=== PATIENT | female | born 1970 | race Caucasian/White ===

== ENCOUNTER 2024-08-03 10:56 | Outpatient (AMB) | payer BC, SELFPAY ==
--- NOTE | 2024-08-03 10:58 | MHC.PC.OV ---
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 - see comments Intake Note: new patient to establish care Allergies No Known Allergies Allergy (Verified 08/03/24 11:15) Medication List - Last Reconciled 08/03/24 by ZULY Vee No Known Home Meds Tobacco use date assessed: 08/03/24 Dental Screening Dental Screen Date: 08/03/24 Did you have a dental visit in the last 12 months?: Yes Did you have a dental problem in the last 6 months where you did not have access to dental care?: No Was dental information given to patient?: Patient has dentist HPI HPI Comments History of Present Illness Details 54 y/o F with perimenopause, overactive bladder, obesity, alcohol use disorder s/p left knee surgery x 2 1988, 2010, breast reduction 2007, bladder sling Fhx:Mom with postmenopausal breast cancer dx 57, . 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 DEXA n/a PAP Oct [address], [address] Tdap today 08/03/24 Specialists: [facility] @ [facility] Here today as a new patient to establish care and for complete physical exam. She reports that she is overall very healthy. Coming from Dr Strickland in [place]. Whose practice has closed and records are not available. Optho- UTD, last exam 2 years ago. Wears cheaters Skin - no issues Sleep- falls asleep fine, wakes to use the bathroom and then her mind runs. Getting up 2-3 times per night to use the bathroom Drinks beer and wine each night . Denies any withdrawal sx. Plan Check screening labs today. Refer for her 1st colonoscopy and for dermatology skin cancer screening For her overactive bladder I recommend trialing Myrbetriq. 25 mg daily. If this is successful and prevent sure waking up in the middle of the night, advised to continue this treatment. We can increase the medication if necessary. If this does not work, advised to use melatonin extended release to help her insomnia Discussed alcohol reduction. Return to the office in 1 year for complete physical exam, sooner as needed. This note is constructed using voice recognition software. While every effort has been made to ensure accuracy in dry mill operator, still errors may have been included Sometimes, these errors may affect the content or meaning of the given sentence . [facility] Medical History (Updated 08/03/24 @ 14:33 by DAGMAR Vee) No pertinent past medical history Surgical History (Updated 08/03/24 @ 14:33 by ZULY Vee) Hx of bilateral breast reduction surgery H/O arthroscopic knee surgery Family History (Updated 08/03/24 @ 11:11 by Ector Hdz MA) Father Diabetes Mother Breast cancer Cervical cancer Social History (Updated 08/03/24 @ 11:04 by Ector Hdz MA) Household Members: Spouse Both parents involved: No Caregiver staying overnight: No Housing: House Are you a primary acute care surgeon to a significant other at home: No Do you presently have visiting nurse or other home services: No 75 years or older and lives alone: No Alcohol intake: current Alcohol intake frequency: 0-2 drinks per day Alcohol type: beer and wine Patient Tobacco Use Status: Never used Tobacco e-Cigarette/Vaping Use: Never Used Second Hand Smoke Exposure: No service: No Current occupational status: 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 1. Little interest or pleasure in doing things: not at all 2. Feeling down, depressed, or hopeless: not at all 3. Trouble falling or staying asleep, or sleeping too much: more than half the days 4. Feeling tired or having little energy: not at all 5. Poor appetite or overeating: not at all 6. Feeling bad about yourself - or that you are a failure or have let yourself or your family down: not at all 7. Trouble concentrating on things, such as reading the newspaper or watching television: not at all 8. Moving or speaking so slowly that other people could have noticed. Or the opposite - being so fidgety or restless that you have been moving around a lot more than usual: not at all 9. Thoughts that you would be better off or of hurting yourself in some way: not at all Total score: 2 Depression Screening Interpretation: Negative Depression Screening Done: Yes 50946 - PHQ-9 Billing: Yes Source: Developed by Drs. Carter Heaton, Maria Ines Rushing, Terrance Bran and colleagues, with an educational arnie from [employer]. Thrive Questionnaire Date Thrive assessed: 08/03/24 I am a: Patient What is your living situation today?: I have a steady place to live Within the past 12 months, did the food you bought not last and you didn't have the money to get more?: Never true Within the past 12 months, did you worry whether your food would run out before you got money to buy more?: Never true Do you have trouble paying for medicines?: No Do you have trouble getting transportation to medical appointments?: No Do you have trouble paying your heating and electricity bill?: No Do you have trouble taking care of your child, family member or friend?: No Do you have trouble with day-to-day activities such as bathing, preparing meals, shopping, managing finances, etc.?: No Are you currently unemployed and looking for a job?: No Are you interested in more education?: No Please select the resources that you would like help with: None THRIVE Score: 0 AUDIT C Alcohol Use Questionnaire (AUDIT-C) 1. How often do you have a drink containing alcohol?: Monthly or less 2. How many drinks containing alcohol do you have on a typical day when you are drinking?: 1 or 2 3. How often do you have six or more drinks on one occasion?: Never Total Score: 1 Score Reviewed/Action Taken: Yes HAYLEY-7 AMB Questionnaire HAYLEY-7 Date HAYLEY - 7 assessed: 08/03/24 Feeling nervous, anxious, or on edge: 0 = Not at all Not being able to stop or control worryin = Not at all Worrying too much about different things: 0 = Not at all Trouble relaxin = Not at all Being so restless that it is hard to sit still: 0 = Not at all Becoming easily annoyed or irritable: 0 = Not at all Feeling afraid as if something awful might happen: 0 = Not at all Total HAYLEY-7 score (0-4 normal; 5-9 mild; 10-14 moderate; 15-21 severe): 0 Source: Developed by Drs. Carter Heaton, Maria Ines Rushing, Terrance Bran and colleagues, with an educational arnie from [employer]. HAYLEY-7 Assessment Billing HAYLEY-7 Assessment Tool: HAYLEY-7 Assessment 23866 Review of Systems Const Details: Constitutional: Denies fever. Skin: Denies rash. Eye: Denies eye pain. ENMT: Denies sore throat and nasal congestion. Respiratory: Denies shortness of breath and cough. Gastrointestinal: Denies nausea, vomiting or abdominal pain. Cardiovascular: Denies chest pain and syncope. Genitourinary: Denies dysuria. Musculoskeletal: Denies back pain and extremity pain. Neurologic: Denies headaches, confusion, and weakness. Psychiatric: Denies suicidal thoughts and substance abuse. Allergy/ Immunologic: Denies impaired immunity. Physical exam (Primary Care) Vital Signs: Last Vital Signs Pulse 88 08/03/24 11:04 Resp 15 08/03/24 11:04 BP 118/76 08/03/24 11:04 Pulse Ox 97 08/03/24 11:04 Oxygen Delivery Method Room Air 08/03/24 11:04 BMI result Body Mass Index 32.0 BMI Assessment/Plan discussion: High BMI High, discussed plan: lifestyle Tobacco/Smoking Status: Tobacco use Status Tobacco use date assessed 08/03/24 08/03/24 11:07 Patient Tobacco Use Status Never used Tobacco 08/03/24 11:07 e-Cigarette/Vaping Use Never Used 08/03/24 11:07 PHQ-9: PHQ-9 Score PHQ-9: Total score 2 08/03/24 11:54 Depression Screening Interpretation: Negative Thrive Assessment: Date of Thrive Assessment Date Thrive assessed 08/03/24 08/03/24 11:11 Const Other: General: Well developed, well nourished, in no acute distress. Appears stated age. Head: Normocephalic, atraumatic. Eyes: Pupils are equal, round and reactive to light and accommodation. Conjunctivae are clear. Vision grossly normal. Ears: TMs clear on right, Cerumen impaction Left Nose: Patent, without discharge. Mouth: There are no ulcers or lesions noted. No inflammation, no post nasal drip, no plaques nor exudates. Neck: Supple, no adenopathy or thyromegaly. Lungs: Clear to auscultation bilaterally. No rales, rhonchi or wheeze noted. Good air flow in all nicholas. Heart: Regular rate and rhythm. No murmurs, click, rubs or gallops are noted. Abdomen: Bowel sounds present in all quadrants. The abdomen is soft, nontender, with no masses or organomegaly noted. No hernias are noted. Musculoskeletal: Joints are nontender, without swelling, redness, or effusions. Range of motion is observed to be normal. Pulses: Peripheral pulses are equal and palpable bilaterally. Extremities: No clubbing, cyanosis nor edema is noted. Neurologic: Gait and station normal. Cranial Nerves 2-12 intact. Motor strength grossly symmetrical and intact. No sensory loss. Balance normal. Skin: No rashes, ulcers, or lesions noted. Turgor is good. Skin color is good. Hair and nails are without abnormalities. Psych: Normal eye contact, affect and mood appropriate, and normal interactions. Patient is alert and appropriate to context. Immunizations Boostrix Tdap 2.5 Lf unit-8 mcg-5 Lf/0.5 mL intramuscular syringe Performing Provider: ZULY Vee Performing Location: [facility] Administered by: Shikha Kruse RN on 08/03/24 11:52 Dose Route Admin Location Dispensed Lot Number Expiration Date NDC Test Director 0.5 mL IM Right Deltoid 0.5 mL [id number] 08/03/24 29779-093-88 [employer] VIS Given Date VIS Provided VIS Publication Date 08/03/24 Single Vaccine 21 Eligibility Eligibility Date Funding Source Not [facility] Eligible 08/03/24 Private Assessment and Plan Assessment & Plan (1) Encounter for general adult medical examination without abnormal findings: Code(s): Z00.00 - Encounter for general adult medical examination without abnormal findings (2) Alcohol use disorder: Code(s): F10.90 - Alcohol use, unspecified, uncomplicated (3) Overactive bladder due to prolapse of female genital organ: Code(s): N32.81 - Overactive bladder; N81.9 - Female genital prolapse, unspecified (4) Obesity, Class I, BMI 30-34.9: Code(s): E66.9 - Obesity, unspecified (5) Screening for colon cancer: Code(s): Z12.11 - Encounter for screening for malignant neoplasm of colon (6) Skin cancer screening: Code(s): Z12.83 - Encounter for screening for malignant neoplasm of skin (7) H/O midurethral sling procedure: Code(s): Z98.890 - Other specified postprocedural states (8) Perimenopause: Code(s): N95.1 - Menopausal and female climacteric states (9) Left ear impacted cerumen: Code(s): H61.22 - Impacted cerumen, left ear Orders: Orders Comprehensive [place]. Panel Fast Today Z00.00 - Encounter for general adult medical examination without abnormal findings Hemoglobin A1c Today Z00.00 - Encounter for general adult medical examination without abnormal findings Vitamin B12 and Folate Today Z00.00 - Encounter for general adult medical examination without abnormal findings Complete Blood Count no Diff Today Z00.00 - Encounter for general adult medical examination without abnormal findings Vitamin D 25-OH Total Today Z00.00 - Encounter for general adult medical examination without abnormal findings TDaP Immunization Today Z23 - Encounter for immunization Lipid Panel Today Z00.00 - Encounter for general adult medical examination without abnormal findings Microalbumin, Random (w Creat) Today Z00.00 - Encounter for general adult medical examination without abnormal findings TSH reflex Free T4 Today Z00.00 - Encounter for general adult medical examination without abnormal findings Referrals Dermatology Referral Z12.83 - Encounter for screening for malignant neoplasm of skin Gastroenterology Referral Z12.11 - Encounter for screening for malignant neoplasm of colon Medications: New mirabegron ER (Myrbetriq) 25 mg PO DAILY 90 tabs 0RF Patient Instructions: Walk-In Care (Urgent Care): We Make it Easy Walk-in for urgent medical issues such as: ? Seasonal Allergies ? Insect Bites ? Cough ? Diarrhea ? Acute Asthma Attacks ? Back, Knee or Joint Pain ? Ear Infection ? Fever without a Rash ? Headaches ? Nausea ? [place], Rash or Skin Irritation ? Sore Throat ? Sports Physicals ? Vomiting Most insurances are accepted. Patients do not need to be part of the [facility] to seek care at the walk-in clinic. Locations [facility], [place] [address] ? [phone] [facility] in [place] provides services to ages 18 and over. Open Thursday-Thursday: 8 a.m. to 5 p.m. and Thursday: 9 a.m. to 3 p.m.* *Hours may vary due to staffing availability. To confirm Walk-In Care hours in [place], please call [phone]. [address] [place] [address] ? [phone] [facility] in [place] provides services to ages 12 and over. Open Thursday-Thursday: 8 a.m. to 5 p.m. Hours may vary due to staffing availability. To confirm Walk-In Care hours in [place], please call [phone]. LABORATORY SERVICES: [facility] Lab ? Primary Location [address] [place] [address] Thursday through Thursday 6:00 AM ? 5:00 PM Thursday 7:00 AM ? 11:00 AM* [phone] The [facility] Lab is centrally located near the front entrance of the [facility] for easy outpatient access. Convenient parking is provided for outpatients. *Hours may vary due to staffing availability. To confirm Laboratory hours for any location, please call [phone]. Offsite Location For your convenience, we offer offsite laboratory draw stations at the following locations: [address] [place] [address] ? [address], [address] Thursday through Thursday 7:30 AM ? 1:00 PM* [phone] *Hours may vary due to staffing availability. To confirm Laboratory hours for any location, please call [phone]. [place] ? [address] Thursday through Thursday 6:00 AM ? 3:30 PM* Thursday 6:30 AM ? 3 PM* [phone] *Hours may vary due to staffing availability. To confirm Laboratory hours for any location, please call [phone] [place] [address] Thursday through Thursday 7:30 AM ? 4:00 PM* [phone] *Hours may vary due to staffing availability. To confirm Laboratory hours for any location, please call [phone] [place] [address] Thursday through 9:00 AM ? 4:00 PM* *Hours may vary due to staffing availability. To confirm Laboratory hours for any location, please call [phone]. Appointments are not necessary. Walk-ins are welcome. Like all the departments throughout the [facility], our Lab undergoes frequent reviews to ensure the quality and accuracy of test results, and our staff takes special pride in its status as a nationally accredited facility. Patient Portal: ONE PATIENT. ONE RECORD. BETTER CARE. [facility] has a fully integrated, cutting-edge mobile electronic health information system that has revolutionized the way we care for our patients and manage our organization. This system improves communication and coordination enabling us to provide safe, higher-quality care, and an overall positive experience for staff and patients. Our first priority, as always, is to deliver the highest quality care possible. The system is running in the background supporting that priority. This portal is for all [facility] services and practices. If you are experiencing any technical difficulties with enrolling or logging into the Patient Portal please complete the [facility] Patient Portal Technical Support Form. [facility] now offers a new secure on-line interactive tool for patients to review their health information ? ?Patient Portal. This interactive web portal will enable patients and their families to take an active role in their care by providing easy, secure access to their health information via the internet. The Patient Portal provides patients with instant access to their health information, including laboratory results, medications, allergies, demographic information, visit history, and more. In addition to managing their own care, parents and health care proxies with authorized consent will appreciate the ability to access the records of those individuals for whom they provide care. Please note: if you wish to gain access (Proxy) to another patient?s portal, you will be required to come to the Medical Records Department in person at [facility]. Both the patient giving proxy access and the proxy will need to provide photo identification and complete the appropriate authorization. The Patient Portal also allows track their appointments online. The [facility] Patient Portal also saves patients time by allowing them to submit updates to their demographic and contact information prior to their visits. Portal email notifications will also alert patients to any new activity on their portal, such as test results and new appointments. In order to initially enroll in the [facility] Patient Portal, you will need to enter some required information including the following: your [facility] Medical Record number your personal home email address name date of Please note: In order to enroll in the [facility] Patient Portal, we need to have your email address on file in your electronic medical record. ?The email address needs to be specific for one person (yourself) in order for your Portal enrollment to be successful. ?You can update your email address in person with our Registration staff when you are registering for a hospital visit. ?Otherwise, you will need to come to the Health Information Management (Medical Records) Department at [facility]. ?We are open from Thursday ? Thursday from 7:30 a.m. ? 4:30 p.m. ?You will be required to present a photo id. Once you have successfully enrolled in the Patient Portal, you will receive a one-time user id and password for the Portal, sent to your email address. ?This will allow you to log into the Patient Portal within 99 hrs and reset your own logon id and password, and define personal security questions. ?Once your permanent login and password have been set, you can log into the [facility] Patient Portal at any time via the blue button above or from the Portal Logon button on any page of the [facility] website. [facility] encourage all of our patients to enroll in Patient Portal as it presents a valuable opportunity for patients and their families to actively participate in their care and stay healthy Welcome to [facility]. ?We look forward to working with you. Health screenings for women You should visit your health care provider from time to time, even if you are healthy. The purpose of these visits is to: Screen for medical issues Assess your risk for future medical problems Encourage a healthy lifestyle Update vaccinations and other preventive care services Help you get to know your provider in case of an illness Information Even if you feel fine, you should still see your provider for regular checkups. These visits can help you avoid problems in the future. For example, the only way to find out if you have high blood pressure is to have it checked regularly. High blood sugar and high cholesterol levels also may not have any symptoms in the early stages. A simple blood test can check for these conditions. There are specific times when you should see your provider or receive specific health screenings. The [place] Preventive Services Task Force publishes a list of recommended screenings. Below are screening guidelines for women ages 18 to 39. BLOOD PRESSURE SCREENING Your blood pressure should be checked at least once every 3 to 5 years if: Your blood pressure is in the normal range (top number less than 120 mm Hg and bottom number less than 80 mm Hg) You don't have risk factors for high blood pressure Ask your provider if you need your blood pressure checked more often if: The top number is 120 to 129 mm Hg or the bottom number is 70 to 79 mm Hg You have diabetes, heart disease, kidney problems, are overweight, or have certain other health conditions You have a first-degree relative with high blood pressure You are Black You had high blood pressure during a If the top number is 130 mm Hg or greater or the bottom number is 80 mm Hg or greater, this is considered stage 1 hypertension. Schedule an appointment with your provider to learn how you can reduce your blood pressure. Watch for blood pressure screenings in your area. Ask your provider if you can stop in to have your blood pressure checked. BREAST CANCER SCREENING Experts do not agree about the benefits of breast self-exams in finding breast cancer or saving lives. Talk to your provider about what is best for you. A screening mammogram is not recommended for most women under age 40. Your provider may discuss and recommend mammograms, MRI scans, or ultrasounds if you have an increased risk for breast cancer, such as: A mother or sister who had breast cancer at a young age (most often starting screening earlier than the age the close relative was diagnosed) You carry a high-risk genetic marker CERVICAL CANCER SCREENING Cervical cancer screening should start at age 21 years unless your provider advises otherwise. After the first test: Women ages 21 through 29 should have a Pap test every 3 years. Exoprts do not agree on whether HPV testing is recommended for this age group. Women ages 30 through 65 should be screened with either a Pap test every 3 years or the HPV test every 5 years or both tests every 5 years (called cotesting ). Women who have been treated for precancer (cervical dysplasia) should continue to have Pap tests for 20 years after treatment or until age 65, whichever is longer. If you have had your uterus and cervix removed (total hysterectomy), and you have not been diagnosed with cervical cancer or precancer (high grade cervical neoplasia), you do not need cervical cancer screening. CHOLESTEROL SCREENING Cholesterol screening should begin at: Age 45 for women with no known risk factors for coronary heart disease Age 20 for women with known risk factors for coronary heart disease Repeat cholesterol screening should take place: Every 5 years for women with normal cholesterol levels More often if changes occur in lifestyle (including weight gain and diet) More often if you have diabetes, heart disease, kidney problems, or certain other conditions DIABETES SCREENING You should be screened for diabetes starting at age 35 and then repeated every 3 years if you have no risk factors for diabetes. Screening may need to start earlier and be repeated more often if you have other risk factors for diabetes, such as: You have a first degree relative with diabetes. You are overweight or have obesity. You have high blood pressure, prediabetes, or a history of heart disease. Screening for diabetes should be done if you are planning to become and you are overweight and have other risk factors such as high blood pressure. DENTAL EXAM Go to the dentist once or twice every year for an exam and cleaning. Your dentist will evaluate if you need more frequent visits. EYE EXAM Have an eye exam every 5 to 10 years before age 40. If you have vision problems, have an eye exam every 2 years or more often if recommended by your provider. You should have an eye exam that includes an examination of your retina (back of your eye) at least every year if you have diabetes. IMMUNIZATIONS Commonly needed vaccines include: Flu shot: get one every year. COVID-19 vaccine: ask your provider what is best for you. Tetanus-diphtheria and acellular pertussis (Tdap) vaccine: have one at or after age 19 as one of your tetanus-diphtheria vaccines if you did not receive it as an adolescent. Tetanus-diphtheria: have a booster (or Tdap) every 10 years. Varicella vaccine: receive 2 doses if you never had chickenpox or the varicella vaccine. Hepatitis B vaccine: receive 2, 3, or 4 doses, depending on your exact circumstances. Measles, mumps, and rubella (MMR) vaccine: receive 1 to 2 doses if you are not already immune to MMR. Your provider can tell you if you are immune. Ask your provider about the human papillomavirus (HPV) vaccine if: You have not received the HPV vaccine in the past You have not completed the full vaccine series (you should catch up on this shot) Ask your provider if you should receive other immunizations if you have certain health problems that increase your risk for some diseases such as pneumonia. INFECTIOUS DISEASE SCREENING Women who are sexually active should be screened for chlamydia and gonorrhea up until age 25. Women 25 years and older should be screened for chlamydia and gonorrhea if at high risk. Screening for hepatitis C: All adults ages 18 to 79 should get a one-time test for hepatitis C. people should be screened at every . Screening for human immunodeficiency virus (HIV): All people ages 15 to 65 should get a one-time test for HIV. Depending on your lifestyle and medical history, you may also need to be screened for infections such as syphilis and HIV, as well as other infections. PHYSICAL EXAM All adults should visit their provider from time to time, even if they are healthy. The purpose of these visits is to: Screen for disease Assess your risk of future medical problems Encourage a healthy lifestyle Update your vaccinations and other preventive care services Maintain a relationship with a provider in case of an illness Your height, weight, and BMI should be checked at every exam. During your exam, your provider may ask you about: Depression and anxiety Diet and exercise Alcohol and tobacco use Safety issues, such as using seat belts, smoke detectors, and intimate partner violence Your medicines and risk for interactions SKIN SELF-EXAM Your provider may check your skin for signs of skin cancer, especially if you're at high risk, such as if you: Have had skin cancer before Have close relatives with skin cancer Have a weakened immune system OTHER SCREENING Talk with your provider about colon cancer screening if you have a strong family history of colon cancer or polyps, or if you have had inflammatory bowel disease or polyps yourself. Routine bone density screening of women under 40 is not recommended. Earwax (Cerumen Impaction) Created in Ears Earwax, called cerumen, is produced by special wax-forming glands located in the skin of the outer one-third of the ear canal. It is normal to have cerumen in ear canal as this waxy substance serves as a self-cleaning agent with protective, lubricating, and antibacterial properties. The absence of earwax may result in dry, itchy ears. Self-cleaning means there is a slow and bell spinner movement of earwax and skin cells from the eardrum to the ear opening. Old earwax is constantly being transported, assisted by chewing and jaw motion, from the ear canal to the ear opening where, most of the time, it dries, flakes, and falls out. What Are the Symptoms of an Earwax Blockage? Symptoms of an earwax problem may include: Earache Feeling of plugged hearing or fullness in the ear Partial hearing loss that gets worse Tinnitus, ringing, or noises in the ear Itching, odor, or discharge Coughing Pain Infection What Causes Earwax Blockage? When a patient has wax blockage against the eardrum, it is often because they have been probing the ear with such things as cotton-tipped swabs, kelvin pins, or twisted napkin corners. These objects only push the wax in deeper in the ear canal. Why Is It Dangerous to Use Swabs to Remove Earwax? Wax blockage is one of the most common causes of hearing loss. This is often caused by attempts to clean the ear with cotton swabs. Most cleaning attempts merely push the wax deeper into the ear canal which is shaped like an hourglass, causing a blockage at the narrowing part of the ear canal. In addition, accidental trauma to the ear drum or ear bones can occur if the swab is pushed too deep. Good intentions to keep ears clean may lessen the ability to hear. The ear is a delicate and complicated body part, including the skin of the ear canal and the eardrum. Therefore, special care should be given to this part of the body. Discontinue the habit of inserting cotton-tipped swabs or other objects into the ear canals. What Are the Treatment Options? Cleaning a working ear can be done by washing it with a soft cloth, but do not insert anything into the ear. Ideally, the ear canals should never have to be cleaned. However, that isn?t always the case. The ears should be cleaned when enough earwax gathers to cause symptoms or to prevent a needed assessment of the ear by your doctor. This condition is call cerumen impaction. Most cases of ear wax blockage respond to home treatments used to soften wax. Patients can try placing a few drops of mineral oil, baby oil, glycerin, or commercial drops in the ear. Detergent drops such as hydrogen peroxide or carbamide peroxide (available in most pharmacies) may also aid in the removal of wax. Irrigation or ear syringing is commonly used for cleaning and can be performed by a physician or at home using a commercially available irrigation kit. Common solutions used for syringing include water and saline, which should be warmed to body temperature to prevent dizziness. Ear syringing is most effective when water, saline, or wax dissolving drops are put in the ear canal 15 to 30 minutes before treatment. Caution is advised to avoid having your ears irrigated if you have diabetes, a hole in the eardrum (perforation), tube in the eardrum, skin problems such as eczema in the ear canal or a weakened immune system. >> If you have been prescribed Debrox, use as directed for 5 nights and return to the office on Day 6 for an ear lavage to remove the wax<< Manual removal of earwax is also effective. This is most often performed by an ENT (ear, nose, and throat) specialist, or realtime reporter, using suction or special miniature instruments, and a microscope to magnify the ear canal. Manual removal is preferred if your ear canal is narrow, the eardrum has a perforation or tube, other methods have failed, or if you have skin problems affecting the ear canal, diabetes or a weakened immune system. When Should I Talk to a Doctor? If home treatments do not help, or if wax has accumulated so much that it blocks your ear canal and your ability to hear, an ENT specialist may prescribe eardrops designed to soften wax, or they may wash or vacuum it out. Your ENT specialist may also need to remove the wax under microscopic visualization. If there is a possibility of a perforation in the eardrum, consult a physician prior to trying any [id number] remedies. Putting eardrops or other products in the ear with the presence of an eardrum perforation may cause pain or an infection. Washing water through such a hole could start an infection. If you are prone to repeated wax impaction or use hearing aids, consider seeing your doctor every six to 12 months for a checkup and routine preventive cleaning. What Questions Should I Ask My Doctor? What are the benefits and risks/side effects of different cerumen removal management options: earwax softening products, water irrigation vs. physical removal? Does cerumen accumulation vary with age, gender, familial or dietary intake? How do I manage swimming underwater with cerumen impaction? Should anything be done to the ears to prevent a buildup of earwax? How often should cerumen be removed from the ears? Are ear candles a safe option for removing earwax? Coding Level of Care Code Complex EM visit Add On G2211 Diagnoses Encounter for general adult medical examination without abnormal findings Z00.00 Alcohol use disorder F10.90 Overactive bladder due to prolapse of female genital organ N32.81; N81.9 Obesity, Class I, BMI 30-34.9 E66.9 Screening for colon cancer Z12.11 Skin cancer screening Z12.83 H/O midurethral sling procedure Z98.890 Perimenopause N95.1 Left ear impacted cerumen H61.22 Additional Codes HAYLEY-7 Assessment Billing - HAYLEY-7 Assessment Tool: HAYLEY-7 Assessment 46117 ([id number])
[2024-08-03 11:04] VITALS: BP 118/76; PULSE 88; RESP 15; O2SAT 97; BMI 32.0
== END 2024-08-03 11:50 | disposition home or self-care (01) ==
PROVIDERS: PCP Nurse Practitioner Family; Visit Provider Nurse Practitioner Family
DX: Z00.00 Encounter for general adult medical examination without abnormal findings (principal); F10.90 Alcohol use, unspecified, uncomplicated; N32.81 Overactive bladder; Z23 Encounter for immunization; N81.9 Female genital prolapse, unspecified; E66.9 Obesity, unspecified; Z13.31 Encounter for screening for depression; Z12.83 Encounter for screening for malignant neoplasm of skin; Z98.890 Other specified postprocedural states; N95.1 Menopausal and female climacteric states; H61.22 Impacted cerumen, left ear
CPT/HCPCS: 90471; 90715; 96127; 99386

== ENCOUNTER 2024-08-17 07:57 | Outpatient (REF) | payer BC, SELFPAY ==
[2024-08-17 11:22] LABS: Hematocrit 44.1 % (37.0-47.0); Hemoglobin 15.1 g/dl (12.0-16.0); Mean Corpuscular HGB Conc 34.2 g/dl (31.0-35.0); Mean Corpuscular Hemoglobin 34.5 pg (27.0-33.0); Mean Corpuscular Volume 100.7 fL (80.0-98.0); Platelet Count 315 X10*3/uL (160-400); Red Blood Count 4.38 X10*6/uL (4.20-5.50); Red Cell Distribution Width 11.5 % (11.0-16.0); White Blood Count 5.4 X10*3/uL (4.8-10.8)
[2024-08-17 11:26] LABS: Estimated Average Glucose 100 mg/dL; Hemoglobin A1c % 5.1 % (<6.0)
[2024-08-17 11:57] LABS: Creatinine Urine 218.97 mg/dL; Microalbum/Creatinine Ratio Ur 3.6 ug/mg cr (<30)
[2024-08-17 12:10] LABS: Alanine Aminotransferase 46 U/L (0-31); Albumin Level 4.3 g/dL (3.5-5.0); Alkaline Phosphatase 51 U/L (39-117); Anion Gap 17 (12-20); Aspartate Amino Transferase 32 U/L (5-31); Bilirubin Total 1.2 mg/dL (0.0-1.0); Blood Urea Nitrogen 12 mg/dL (9-16); Calcium 9.8 mg/dL (8.4-10.2); Carbon Dioxide 28 mmol/L (22-29); Chloride 102 mmol/L (96-108); Cholesterol 177 mg/dL (<200); Estimated Glomerular Filt Rate 55; Glucose Fasting 94 mg/dL (60-99); HDL Cholesterol 51 mg/dL (>40); LDL Cholesterol Calculated 96 mg/dL (<100); Potassium 3.8 mmol/L (3.3-5.1); Sodium 143 mmol/L (135-145); TSH reflex Free T4 2.46 uIU/mL (0.32-4.0); Total Protein 7.7 g/dL (6.5-8.0); Triglycerides 152 mg/dL (<150); Vitamin D 25-OH Total 26.6 ng/mL (>30)
[2024-08-17 12:31] LABS: Folate 10.1 ng/mL (> or = 4.0); Vitamin B12 318 pg/mL (200-900)
== END 2024-08-17 07:58 | disposition home or self-care (01) ==
LOC: HO.WFDLDS 07:57
PROVIDERS: Visit Provider Nurse Practitioner Family
DX: Z00.00 Encounter for general adult medical examination without abnormal findings (principal); Z13.1 Encounter for screening for diabetes mellitus
CPT/HCPCS: 36415; 80053; 80061; 82043; 82306; 82570; 82607; 82746; 83036; 84443; 85027

== ENCOUNTER 2025-03-20 12:20 | Outpatient (AMB) | payer BC, SELFPAY ==
--- NOTE | 2025-03-20 15:13 | A.OFFPC_ITS ---
Intake Visit Reasons: Knee pain referral to [facility] [place] ortho Intake Note: telehealth for referral to ortho. 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 Required: No Allergies No Known Allergies Allergy (Verified 03/20/25 16:21) Medication List - Last Reviewed 03/20/25 by Ector King MA cholecalciferol (vitamin D3) 50 mcg PO DAILY folic acid 1 mg PO DAILY mirabegron ER (Myrbetriq) 25 mg PO DAILY thiamine HCl (vitamin B1) 100 mg PO DAILY Tobacco use date assessed: 03/20/25 Dental Screening Dental Screen Date: 03/20/25 Did you have a dental visit in the last 12 months?: Yes Did you have a dental problem in the last 6 months where you did not have access to dental care?: No Was dental information given to patient?: Patient has dentist HPI HPI Comments History of Present Illness Details 54 y/o F with perimenopause, overactive bladder, obesity, alcohol use disorder s/p left knee surgery x 2 1988, 2010, breast reduction 2007, bladder sling Fhx:Mom with postmenopausal breast cancer dx 57, . 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 Health Maintenance: * Colon has never had one * Mammo Spring 2023 @ [facility]. * DEXA n/a * PAP Oct 2022 WNL, IUD in place * Tdap today 08/03/24 Specialists: [facility] @ [facility] History of Present Illness - The patient is a 55-year-old female pr esenting with left knee pain and swelling. - She has undergone two previous arthros copic procedures on the left knee, with the most recent intervention being eight years ago. - The current knee issue began two weeks ago, characterized by swelling and severe pain, impacting her ability to walk and perform work duties. - The swelling increased notably after a ttending a ballgame. - No recollection of acute injury; the p atient suspects it may be related to arthritis. - No fever, chills, warmth, or redness r eported. - Pain management has been limited to sp oradic ibuprofen usage due to worsening symptoms. Previous surgeries done by Dr Covington; she has been very happy w/ him and would like to see him for eval and tx. Assessment and Plan 1. Left Knee Pain The patient presents with left knee pain and swelling, suspected to be related to degenerative changes or intra-articular pathology, given her history of prior interventions. A regimen of diclofenac has been prescribed for anti-inflammatory management, with specific instructions on usage. [place] [facility] [place] has been made to explore further potential interventions, reassessment, and confirmatory diagnosis of the underlying cause. Advised not to take OTC NSAIDS wtih diclofenac. Telehealth Attestation The interaction was conducted via telehealth, and the information documented accurately reflects the services provided during this session. The patient has been explained that this is an interactive (audio/video) telehealth encounter and what that consists of. The patient understands and wishes to proceed. [employer] platform was used. Total time spent caring for the patient today was 15 minutes. This includes time spent before the visit reviewing the chart, time spent during the visit, and time spent after the visit on documentation, reviewing laboratory results, diagnostic imaging, medications, performing a medically necessary evaluation, counseling on diagnoses, care coordination, ordering appropriate tests, ordering appropriate medications, review of tests performed by other providers, reporting test results with the patient, communication with other healthcare providers. [facility] Medical History (Updated 03/20/25 @ 16:37 by MIKI Vee-BRENDAN) No pertinent past medical history Surgical History (Updated 08/03/24 @ 14:33 by DAGMAR Vee) H/O arthroscopic knee surgery Hx of bilateral breast reduction surgery Family History (Updated 08/03/24 @ 11:11 by Ector Hdz MA) Father Diabetes Mother Breast cancer Cervical cancer Social History (Updated 08/03/24 @ 11:04 by Ector Hdz MA) Household Members: Spouse Both parents involved: No Caregiver staying overnight: No Housing: House Are you a primary animal caretaker to a significant other at home: No Do you presently have visiting nurse or other home services: No 75 years or older and lives alone: No Alcohol intake: current Alcohol intake frequency: 0-2 drinks per day Alcohol type: beer and wine Patient Tobacco Use Status: Never used Tobacco e-Cigarette/Vaping Use: Never Used Second Hand Smoke Exposure: No service: No Current occupational status: 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 How many drinks containing alcohol do you have on a typical day when you are drinking?: 1 or 2 3. How often do you have six or more drinks on one occasion?: Monthly Total Score: 2 HAYLEY-7 AMB Questionnaire HAYLEY-7 Date HAYLEY - 7 assessed: 08/03/24 Source: Developed by Drs. Carter Heaton, Maria Ines Ruhsing, Terrance Bran and colleagues, with an educational arnie from [employer]. Physical exam (Primary Care) Tobacco/Smoking Status: Tobacco use Status Tobacco use date assessed 03/20/25 03/20/25 16:21 Patient Tobacco Use Status Never used Tobacco 03/20/25 15:14 e-Cigarette/Vaping Use Never Used 03/20/25 15:14 Thrive Assessment: Date of Thrive Assessment Date Thrive assessed 08/03/24 03/20/25 15:14 Telehealth Telehealth [facility] Location of provider rendering services: practice address Location of patient: address on file Patient Identification confirmed using: Name, : Yes Telehealth method: voice only Patient verbally consented to treatment: Yes Patient verbally consented to billing insurance company: Yes Patient informed of any privacy concerns related to visit: Yes Minutes spent on Phone/Video with Pt.: 5 Coding Level of Care Code Tele Est Pt Level 2 (29696) Complex EM visit Add On G2211 Diagnoses Pain and swelling of left knee M25.562; M25.462 Assessment & Plan Assessment & Plan (1) Pain and swelling of left knee: Code(s): M25.562 - Pain in left knee; M25.462 - Effusion, left knee Category: Medical Plan . Orders: Referrals Orthopedics Referral M25.462 - Effusion, left knee, M25.562 - Pain in left knee Medications: New diclofenac sodium 50 mg PO BID 60 tabs 1RF
== END 2025-03-20 16:58 | disposition home or self-care (01) ==
LOC: HO.HMCFM 12:20
PROVIDERS: PCP Nurse Practitioner Family; Visit Provider Nurse Practitioner Family
DX: M25.562 Pain in left knee (principal); M25.462 Effusion, left knee

== ENCOUNTER → 2025-03-20 12:20 | Outpatient (BNVA) | payer BC, SELFPAY | PROVIDERS: PCP Nurse Practitioner Family; Visit Provider Nurse Practitioner Family | DX: M25.562 Pain in left knee (principal); M25.462 Effusion, left knee | CPT/HCPCS: 98966 ==

== ENCOUNTER 2025-05-16 07:31 | Outpatient (AMB) | payer BC, SELFPAY ==
--- NOTE | 2025-05-16 07:57 | MHC.OFFVIS ---
Intake Visit Reasons: Left knee pain and giving way Intake Note: Ruth is a 55 year old who presents with complaints of progressively worsening left knee pain and giving way. The patient describes her pain as sharp in nature. All of her pain is along the medial aspect of her knee. The patient has undergone 2 left knee arthroscopic surgeries in the past. The most recent surgery was approximately 10 years ago. She got very good relief from that procedure. She states that she aggravated her knee approximately 1 year ago. She twisted her knee and had acute onset of pain. Since that time her symptoms have gotten worse. She has failed the last 6 weeks of conservative treatment which have included Tylenol, anti-inflammatory medicines and physical therapy exercises. The patient states that her left knee will give out several times per day. Allergies No Known Allergies Allergy (Verified 05/16/25 08:00) Medication List - Last Reconciled 05/16/25 by Mario Covington MD cholecalciferol (vitamin D3) 50 mcg PO DAILY diclofenac sodium 50 mg PO BID folic acid 1 mg PO DAILY mirabegron ER (Myrbetriq) 25 mg PO DAILY thiamine HCl (vitamin B1) 100 mg PO DAILY PFSH Medical History No pertinent past medical history Surgical History Hx of bilateral breast reduction surgery H/O arthroscopic knee surgery Family History Father Diabetes Mother Breast cancer Cervical cancer Social History Household Members: Spouse Both parents involved: No Caregiver staying overnight: No Housing: House Are you a primary home health care respiratory therapist to a significant other at home: No Do you presently have visiting nurse or other home services: No 75 years or older and lives alone: No Alcohol intake: current Alcohol intake frequency: 0-2 drinks per day Alcohol type: beer and wine Patient Tobacco Use Status: Never used Tobacco e-Cigarette/Vaping Use: Never Used Second Hand Smoke Exposure: No service: No 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 occupational status: 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 Cognitive needs: No Hearing needs: No Vision needs: Yes (wear glasses) Physical Exam Const Other: Well-nourished well-developed very friendly female awake alert and oriented x3 in no acute distress Extrem Other: Bilateral lower extremity examination shows good capillary refill, no skin lesions noted, normal sensation light touch Left knee examination shows a minimal effusion, mild crepitus with range of motion, tenderness along her medial joint line, positive Андрей's test, no instability Results Reviewed Results Reviewed: Standing full weight-bearing x-rays of the patient's left knee show mild to moderate diffuse joint space narrowing, no acute bony abnormalities Assessment & Plan Assessment & Plan (1) Tear of medial meniscus of left knee: Code(s): S83.242A - Other tear of medial meniscus, current injury, left knee, initial encounter Category: Medical Plan Ms. Kaufman presents with recurrent left knee pain and mechanical symptoms due to early degenerative joint disease as well as recurrent medial meniscus tearing. I had a lengthy discussion with the patient regarding the treatment options. She wishes to hold off on total knee replacement surgery for as long as possible. I agree with this plan. The risks and benefits of revision left knee arthroscopic surgery were discussed at length with the patient. The patient wishes to proceed. Surgery will involve left knee arthroscopic partial medial meniscectomy. The patient will be scheduled for next available date. She will follow-up as instructed. Feel for a call me at any time should questions regarding her orthopedic management arise. I spent 22 minutes in reviewing the patient's records and imaging studies, seeing the patient and documenting in the medical record. Orders: Orders XR knee LT 3V Today M25.562 - Pain in left knee Coding Level of Care Code New Pt Level 3 (71878) Complex EM visit Add On G2211 Diagnoses Tear of medial meniscus of left knee S83.242A
== END 2025-05-16 08:16 | disposition home or self-care (01) ==
LOC: HO.HOS 07:31
PROVIDERS: PCP Nurse Practitioner Family; Visit Provider Orthopaedic Surgery
DX: S83.242A Other tear of medial meniscus, current injury, left knee, initial encounter (principal)
CPT/HCPCS: 99204

== ENCOUNTER → 2025-05-16 07:43 | Outpatient (BNV) | payer BC, SELFPAY | PROVIDERS: Visit Provider Radiology Diagnostic Radiology | DX: M17.12 Unilateral primary osteoarthritis, left knee (principal) | CPT/HCPCS: 73562 ==

== ENCOUNTER 2025-05-16 08:29 | Outpatient (REF) | payer BC, SELFPAY ==
--- NOTE | ~2025-05-16 | XR_ITS ---
EXAMINATION: XR KNEE, LEFT CLINICAL INFORMATION: M25.562 - Pain in left knee COMPARISON: None available. TECHNIQUE: AP lateral and sunrise views of the left knee. FINDINGS: Joint space narrowing, medial compartment. Sclerosis along the articular surface medial tibial plateau. Marginal osteophyte formation and medial femoral condyle and medial tibial plateau. Subchondral cyst formation medial femoral condyle. Joint space narrowing patellofemoral joint. Marginal osteophyte formation in the posterior superior patella and anterior femoral condyle. No acute cortical disruption or malalignment. No suprapatellar bursa joint effusion. No lytic or blastic lesions. No subcutaneous emphysema. XR/XR knee LT 3V IMPRESSION: Tricompartmental osteoarthrosis involving mostly the medial compartment. Electronically signed by: Parish Marques MD 05/16/2025 07:56 AM EDT
== END 2025-05-16 08:30 | disposition home or self-care (01) ==
LOC: HO.HOSX 08:29
PROVIDERS: Visit Provider Orthopaedic Surgery
DX: M25.562 Pain in left knee (principal); S83.242A Other tear of medial meniscus, current injury, left knee, initial encounter; X50.1XXA Overexertion from prolonged static or awkward postures, initial encounter; Y93.9 Activity, unspecified; Y92.9 Unspecified place or not applicable; Y99.9 Unspecified external cause status
CPT/HCPCS: 73562

== ENCOUNTER 2025-06-05 08:12 | Day surgery (SDC) | payer BC, SELFPAY ==
[2025-06-01 08:56] VITALS: BMI 31.9
--- NOTE | 2025-06-01 15:21 | P.CONAN_ITS ---
Documented by User: Natalie Nuno NP 06/01/25 15:39 HPI - Anesthesia Eval Consult details Narrative: 55 yr old female for left Knee Arthroscopy with partial medial meniscectomy. [facility] Active Problems Active Problems: All Active Problems Tear of medial meniscus of left knee (Acute) Left knee pain (Acute) Pain and swelling of left knee (Acute) Elevated LFTs (Acute) Macrocytosis without anemia (Acute) Vitamin D deficiency (Acute) Perimenopause (Acute) Obesity, Class I, BMI 30-34.9 (Acute) H/O midurethral sling procedure (Acute) Overactive bladder due to prolapse of female genital organ (Acute) Alcohol use disorder (Acute) Encounter for general adult medical examination without abnormal findings (Acute) Skin cancer screening (Acute) Laboratory exam ordered as part of routine general medical examination (Acute) Screening for colon cancer (Acute) Past Medical History Medical History Overactive bladder Family History Family History Father Diabetes Mother Breast cancer Cervical cancer Surgical History Surgical History History of bladder surgery Hx of bilateral breast reduction surgery H/O arthroscopic knee surgery Social History Social History Household Members: Spouse Housing: House Are you a primary director critical care to a significant other at home: No Do you presently have visiting nurse or other home services: No Alcohol intake: current Alcohol intake frequency: 0-2 drinks per day Alcohol type: beer and wine Patient Tobacco Use Status: Never used Tobacco e-Cigarette/Vaping Use: Never Used Second Hand Smoke Exposure: No Use of substances other than those prescribed or required for medical reasons: No Have you been hit, kicked, punched, or otherwise hurt by someone within the past year? 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 needs: No Hearing needs: No Vision needs: Yes (wear glasses) Meds Allergies Allergy/AdvReac Type Severity Reaction Status Date / Time No Known Allergies Allergy Verified 05/16/25 08:00 Active Medications: Current Medications Cefazolin Sodium/Dextrose (Ancef) 2 gm in 50 mls @ 100 mls/hr IV PREOP ONE Stop: 06/05/25 05:30 Exam Height,Weight and Vital Signs: Height 5 ft 8 in Weight 95.254 kg Documented by User: Jocelyn Desai MD 06/05/25 09:10 PMFSH Past Medical History Medical History Overactive bladder Family History Family History Father Diabetes Mother Breast cancer Cervical cancer Family history of problems with anesthesia: No Surgical History Surgical History History of bladder surgery Hx of bilateral breast reduction surgery H/O arthroscopic knee surgery History of Problems with Anesthesia: No Social History Social History Household Members: Spouse Housing: House Are you a primary director critical care to a significant other at home: No Do you presently have visiting nurse or other home services: No Alcohol intake: current Alcohol intake frequency: 0-2 drinks per day Alcohol type: beer and wine Patient Tobacco Use Status: Never used Tobacco e-Cigarette/Vaping Use: Never Used Second Hand Smoke Exposure: No Use of substances other than those prescribed or required for medical reasons: No Have you been hit, kicked, punched, or otherwise hurt by someone within the past year? 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 needs: No Hearing needs: No Vision needs: Yes (wear glasses) Meds Allergies Allergy/AdvReac Type Severity Reaction Status Date / Time No Known Allergies Allergy Verified 05/16/25 08:00 Exam Airway Mallampati Class: II TM Dist: >3cm Neck ROM: Full Heart: rrr Lungs: cta Assessment and Plan Assessment Anesthesia Assessment: Anesthesia Plan Discussed and Chart Reviewed Final Anesthetic Review Family History of Problems with Anesthesia: No History of Problems with Anesthesia: No NPO: Yes ASA Class: III (etoh use disorder) Final Preanesthetic Review: No Changes in Pt Med Stat, Meds/Allgs Chart Reviewed, Consent Obtained/Reviewed and Anes Risks/Benef Reviewed Patient Risk: Intermediate Procedure Risk: Low Anesthetic Plan Anesthetic Plan: GA and MAC: Disposition: Standard PACU
[2025-06-05] VITALS (7 sets, daily range): BP systolic 95–121; BP diastolic 51–72; PULSE 51–62; RESP 16–20; TEMP 36.1–36.6; O2SAT 94–97
[2025-06-05] MEDS: Lactated Ringers 1,000 ML 100 ML IVCONT (08:47)
--- NOTE | 2025-06-05 11:43 | PM.OP ---
Brief Operative Note Date of Service: 06/05/25 Pre-op diagnosis: Left knee medial meniscus tear, right knee degenerative joint disease Post-op diagnosis: same Procedure: Left knee arthroscopic partial medial meniscectomy, left knee arthroscopic chondroplasty of the undersurface of the patella as well as the medial femoral condyle Implants: None Surgeon: Mario Covington MD Anesthesia: GLMA Was an Television Presenter used for this Procedure?: No Estimated blood loss (mL): 10 Pathology: none sent Condition: stable Disposition: PACU
--- NOTE | 2025-06-05 11:44 | P.OP_ITS ---
Operative Note Operative Note Date of Service: 06/05/25 Narrative: After the patient was identified as Ruth Kaufman and her left knee was initialed by myself they were brought to the operating room where general anesthesia was induced by the anesthesiologist in routine fashion. The patient was given 2 g of IV Ancef preoperatively for infection prophylaxis. The patient's left lower extremity was prepped and draped in sterile fashion. A formal time-out was completed. Marcaine was injected into the planned incision sites as well as the patient's left knee joint. A #11 scalpel blade was used to make an anterolateral portal 1 cm proximal to the joint line and 1 cm lateral to the pat ellar tendon. Blunt trocar technique was used to enter the suprapatellar pouch with the knee in extension. Diagnostic arthroscopy showed multiple bands of thickened plica which would be excised at the end of the procedure. There were no loose bodies or abnormalities found in either the medial or lateral gutters. The articular surface of the patella showed diffuse grades 2 and 3 degenerative changes. The trochlear groove articular surface showed diffuse grades 3 and 4 degenerative changes. The patient's knee was flexed to 45 degrees and a valgus force was placed upon it. The medial compartment was entered. An anteromedial portal was made 1 cm proximal to the joint line and 1 cm medial to the patellar tendon. Probing of the medial meniscus showed a radial tear of the posterior horn. A partial medial meniscectomy was performed using the arthroscopic shaver. Following the partial meniscectomy the remainder of the meniscus tissue was stable. There were diffuse grades 2 and 3 degenerative changes of the medial femoral condyle as well as grades 3 and 4 degenerative changes of the medial tibial plateau. The articular surface of the medial femoral condyle was then made smooth using the arthroscopic shaver. The articular surface of the medial tibial plateau was already smooth so no chondroplasty was indicated. The patient's knee was placed into a neutral position. There was no injury to the anterior cruciate ligament. The patient's knee was then placed in the figure of 4 position and the lateral compartment was entered. There was no evidence of lateral meniscus tearing. There were minimal degenerative changes of the lateral femoral condyle and lateral tibial plateau. The patient's knee was once again brought into extension and the suprapatellar pouch was entered. The arthroscopic shaver and the ArthroCare Wand were used to excise the thickened bands of plica. The undersurface of the patella was then made smooth using the arthroscopic shaver. The articular surface of the trochlear groove was already smooth so no chondroplasty was indicated. The knee joint was irrigated and then drained. All arthroscopic instruments were removed. The 2 portals were closed with 3-0 nylon interrupted suture. The knee joint was injected with Marcaine. Dry sterile dressing and Kishan bandages were placed over the patient's knee. The patient was awoken and extubated in the operating room. The patient was transferred to the recovery room in stable condition.
== END 2025-06-05 13:01 | disposition home or self-care (01) ==
PROVIDERS: PCP Nurse Practitioner Family; Visit Provider Orthopaedic Surgery
PROC: (CPT 29870; principal; 2025-06-05 10:40)
DX: S83.242A Other tear of medial meniscus, current injury, left knee, initial encounter (principal); M67.52 Plica syndrome, left knee; M25.562 Pain in left knee; M17.12 Unilateral primary osteoarthritis, left knee; M23.52 Chronic instability of knee, left knee; X50.1XXA Overexertion from prolonged static or awkward postures, initial encounter; Y93.9 Activity, unspecified; Y92.9 Unspecified place or not applicable; Y99.9 Unspecified external cause status; N32.81 Overactive bladder; Z79.899 Other long term (current) drug therapy; Z98.890 Other specified postprocedural states
CPT/HCPCS: 29881; J0131; J0165; J0690; J0696; J1171; J2003; J2250; J2405; J2704; J2795; J3010

== ENCOUNTER → 2025-06-05 08:12 | Outpatient (BNV) | payer BC, SELFPAY | PROVIDERS: PCP Nurse Practitioner Family; Visit Provider Orthopaedic Surgery | DX: S83.242A Other tear of medial meniscus, current injury, left knee, initial encounter (principal) | CPT/HCPCS: 29881 ==

== ENCOUNTER 2025-06-20 07:41 | Outpatient (AMB) | payer BC, SELFPAY ==
--- OUTSIDE RECORDS SUMMARY | 2025-06-20 07:44 | XMS_ITS | Clinical Summary ---
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 Primary Care Provider Allergies No known active allergies Medications No known medications Active Problems No known active problems Immunizations Immunization Administration Dates Next Due Influenza Quadrivalent MDCK Preservative Free IM 11/10/2022 Influenza Quadrivalent MDCK w/Preservative IM Influenza Quadrivalent Preservative Free IM 08/23 Social History Tobacco Use Types Packs/Day Years Used Date Smoking Tobacco: Never Smokeless Tobacco: Never Tobacco Cessation:Counseling Given: Not Answered Education Answer Date Recorded Are you interested [...] on file Sexual Orientation Not on file Last Filed Vital Signs Vital Sign Reading Time Taken Comments Blood Pressure 105/70 12/14/2023 8:53 AM EST Pulse 89 12/14/2023 8:53 AM EST Temperature 36.8 C (98.2 F) 12/14/2023 8:53 AM EST Respiratory Rate 18 12/14/2023 8:53 AM EST Oxygen Saturation 98% 12/14/2023 8:53 AM EST Inhaled Oxygen Concentration - - Weight - - Height - - Body Mass Index - - Plan of Treatment Health Maintenance Due Date Last Done Comments Adult Td,Tdap Booster 1971 LIPID PANEL 1971 DEPRESSION SCREENING 1983 HEPATITIS C SCREENING 1989 HIV ONE-TIME SCREENING (18-6 5 YEARS) 1989 PAP SMEAR 1992 MAMMOGRAM 2011 COLOGUARD 2016 COLONOSCOPY 2016 COLORECTAL CANCER SCREENING 2016 FIT TEST 2016 FOBT 2016 SIGMOIDOSCOPY 2016 VIRTUAL COLONOSCOPY 2016 PNEUMOCOCCAL VACCINES (50+ years) (1 of 1 - PCV) 2021 ZOSTER VACCINES (1 of 2) 2021 COVID-19 VACCINE (4 - 2023-2 5 season) 2024 10/28/2021, 03/06/2021, 02/11/2021 SMOKING STATUS SCREENING (On ce After 26 Yrs) Completed 12/14/2023 HEPATITIS A VACCINES Aged Out No long er eligible based on patient's age to complete this topic HIB VACCINES Aged Out No longer eligi ble based on patient's age to complete this topic MENINGOCOCCAL VACCINES (ACWY) Aged Out No longer eligible based on patient's age to complete this topic MENINGOCOCCAL VACCINES (B) Aged Out N o longer eligible based on patient's age to complete this topic Medical Devices Not on file Insurance [facility] [place] [address] [address] [place] [address] [place] [address] Care Teams Director Product Management Relationship Specialty Start Date End Date Flor Romero NP [address] [facility] [address] [place] [address] PCP - General Nurse Practitioner 12/14/23 Additional Source Comments The information contained in this document represents components of the legal health record. It is not the complete legal health record.[facility]
--- NOTE | 2025-06-20 07:52 | MHC.OFFVIS ---
Intake Visit Reasons: PO-Lt Knee 06/05/25 Intake Note: Ruth is a 55 year old female who presents with complaints of mild to moderate discomfort in her left knee after undergoing left knee arthroscopic surgery on 06/05/2025. She continues with her home stretching program. She denies any fevers or chills. Allergies No Known Allergies Allergy (Verified 06/20/25 07:58) Medication List - Last Reconciled 06/20/25 by Mario Covington MD cholecalciferol (vitamin D3) 50 mcg PO DAILY diclofenac sodium 50 mg PO BID folic acid 1 mg PO DAILY ibuprofen 800 mg PO Q8H PRN mirabegron ER (Myrbetriq) 25 mg PO DAILY oxycodone 5 mg PO Q6H PRN thiamine HCl (vitamin B1) 100 mg PO DAILY PFSH Medical History Overactive bladder Surgical History History of bladder surgery Hx of bilateral breast reduction surgery H/O arthroscopic knee surgery Family History Father Diabetes Mother Breast cancer Cervical cancer Social History Household Members: Spouse Both parents involved: No Caregiver staying overnight: No Housing: House Are you a primary healthcare economics consultant to a significant other at home: No Do you presently have visiting nurse or other home services: No 75 years or older and lives alone: No Alcohol intake: current Alcohol intake frequency: 0-2 drinks per day Alcohol type: beer and wine Patient Tobacco Use Status: Never used Tobacco e-Cigarette/Vaping Use: Never Used Second Hand Smoke Exposure: No service: No Current occupational status: 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 Kaufman is doing well after undergoing left knee arthroscopic surgery on 06/05/2025. Her sutures were removed and Steri-Strips placed over her incisions. She will continue with her home stretching program. She will contact me prior to her follow-up appointment in 2 months should any questions or concerns arise. Feel free to call me at any time should questions regarding her orthopedic management arise. Coding Level of Care Code Global (13741) Diagnoses Left knee pain M25.562
== END 2025-06-20 08:10 | disposition home or self-care (01) ==
LOC: HO.HOS 07:41
PROVIDERS: PCP Nurse Practitioner Family; Visit Provider Orthopaedic Surgery
DX: M25.562 Pain in left knee (principal)
CPT/HCPCS: 99024

== ENCOUNTER 2025-08-11 11:44 | Outpatient (AMB) | payer BC, SELFPAY ==
--- OUTSIDE RECORDS SUMMARY | 2023-12-14 10:13 | XMS_ITS | Encounter Summary ---
Author Organization [facility] Address [email or web address] [place] [address] Phone Care Team Providers Care Haulpak Driver Name Role Phone Flor Romero MANAGING CONSULTANT Primary Care Provider Encounter Details Date Type Department Care Team (Late st Contact Info) Description 12/14/2023 9:13 AM EST Hospital Encounter [facility] [address] [place] [phone] Mercedes Brown, MANAGING CONSULTANT [address] [place] [address] [email or web address] Social History Tobacco Use Types Packs/Day Years [...] IMPRESSION: No acute findings. us Mercedes Brown MANAGING CONSULTANT IMG XR CHEST Final Resul t documented in this encounter Visit Diagnoses Not on filedocumented in this encounter Care Teams Haulpak Driver Relationship Specialty Start Date End Date Flor Romero NP [address] [facility] [address] [place] [phone] PCP - General Nurse Practitioner 12/14/23 documented as of this encounter Additional Source Comments The information contained in this document represents components of the legal health record. It is not the complete legal health record.[facility]
[2025-08-11 11:57] VITALS: BP 112/66; PULSE 82; O2SAT 98; BMI 32.6
--- NOTE | 2025-08-11 11:57 | A.OFFPC_ITS ---
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- cholecalciferol (vitamin D3) 50 mcg PO DAILY diclofenac sodium 50 mg PO BID folic acid 1 mg PO DAILY ibuprofen 800 mg PO Q8H PRN mirabegron ER (Myrbetriq) 25 mg PO DAILY thiamine HCl (vitamin B1) 100 mg PO DAILY Tobacco use date assessed: 08/11/25 Dental Screening Dental Screen Date: 08/11/25 Did you have a dental visit in the last 12 months?: Yes Did you have a dental problem in the last 6 months where you did not have access to dental care?: No Was dental information given to patient?: Patient has dentist HPI HPI Comments History of Present Illness Details 55 y/o F with perimenopause, overactive bladder, obesity, alcohol use disorder, Vit D def s/p left knee surgery x 2 1988, 2010, breast reduction 2007, bladder sling , Left knee arthroscopic partial medial meniscectomy. Dr Rubio 04/2025 Fhx:Mom with postmenopausal breast cancer dx 57, . 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 DEXA n/a PAP Oct 2022 WNL, IUD in place managed by Dr Lei Gonzales 08/03/24, Flu will get at school. 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 feels like bladder sling is failing; ran out of myrbetriq; was working great, needs refill. sent today [facility] Derm had appt, no findings. [place] History of Present Illness The patient is a 55-year-old female presenting with left knee pain and annual physical exam. Left knee pain: - Post-surgical pain with swelling for t wo months. - Reduced mobility; requires further chino luation. - Next appt w/ ortho 08/22/25 Annual physical exam: - Ongoing management for chronic issues and routine health maintenance. - Taking all medications as directed. Obesity: - BMI 32.6; efforts to reduce alcohol us e noted. - Gain since surgery d/t limited mobilit y Snoring: reports, wonders about NADIRA. - sleep study planned. 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 - Reduction in alcohol consumption - Experiencing weight challenges - Snoring concerning to spouse Health Maintenance - Sleep study ordered for suspected slee p apnea - Colonoscopy pending; initial appointme nt rescheduled for August - Mammogram records requested for verifi cation - Flu shot deferred to school clinic - Discussion on shingles vaccination, Sh ingrix recommended over Zostavax Review of Systems - Musculoskeletal: Reports left knee liz n and swelling - General: Denies recent weight loss - Genitourinary: Reports urinary urgency - Neurologic: Reports snoring - Mental Health: Denies depression Discussion Notes I discussed the patient's ongoing knee pain following surgery, emphasizing the role of arthritis in her symptoms. FU with ortho. We also reviewed various health maintenance items, including an upcoming colonoscopy appointment and yearly labs. The possibility of sleep apnea due to persistent snoring was addressed, with a recommendation to undergo a home-based sleep study. The patient expressed interest in the study, and a referral to the respiratory therapy department was made. The merits of the non-live Shingrix vaccine versus the live Zostavax for shingles prevention were discussed, with patient education provided on the differences. Patient was given time to ask questions. All questions were answered to their satisfaction. Assessment and Plan 1. Left knee pain - Orthopedic follow-up recommended. - NSAIDs advised cautiously. 2. Annual physical exam - Routine labs and screenings planned. 3. Obesity - Support for weight management and life style modifications continued. 4. Suspected sleep apnea - Home sleep study initiated. Patient Instructions - Schedule and attend the follow-up orth opedic appointment. - Consider sending a message through the patient portal for scheduling. - Limit use of pain medications to as ne eded. - Undergo the ordered sleep study, and a wait results for further guidance. - Address colonoscopy and upcoming lab t ests as scheduled. - Maintain current vitamin supplementati on and medications as prescribed. - Consider vaccination for shingles as r ecommended. - RTO 1 year for CPE, my office will arr ang fu for sleep study once avail. Consent I obtained verbal consent from the patient for a home-based sleep study after reviewing the suspected diagnosis of sleep apnea. I discussed the benefits of diagnosing and treating potential sleep apnea, emphasizing the risks of untreated sleep apnea, such as exacerbation of snoring and possible cardiovascular effects. The patient understood the alternatives and consented to proceed with the study. Patient was informed and verbally consented to the use of an ambient scribe for clinic note documentation during this visit. An additional 20 minutes was spent addressing the problem(s) noted at todays visit. This includes time spent before the visit reviewing the chart, time spent during the visit, and time spent after the visit on documentation reviewing laboratory results, diagnostic imaging, medications, performing a medically necessary evaluation, counseling on diagnoses, care coordination, ordering appropriate tests, ordering appropriate medications, review of tests performed by other providers, reporting test results with the patient, communication with other healthcare providers. [facility] Medical History Overactive bladder Surgical History History of bladder surgery Hx of bilateral breast reduction surgery H/O arthroscopic knee surgery Family History Father Diabetes Mother Breast cancer Cervical cancer Social History Household Members: Spouse Both parents involved: No Caregiver staying overnight: No Housing: House Are you a primary before and after school daycare worker to a significant other at home: No Do you presently have visiting nurse or other home services: No 75 years or older and lives alone: No Alcohol intake: current Alcohol intake frequency: 0-2 drinks per day Alcohol type: beer and wine Patient Tobacco Use Status: Never used Tobacco e-Cigarette/Vaping Use: Never Used Second Hand Smoke Exposure: No service: No Current occupational status: 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 1. Little interest or pleasure in doing things: not at all 2. Feeling down, depressed, or hopeless: not at all 3. Trouble falling or staying asleep, or sleeping too much: not at all 4. Feeling tired or having little energy: several days 5. Poor appetite or overeating: not at all 6. Feeling bad about yourself - or that you are a failure or have let yourself or your family down: not at all 7. Trouble concentrating on things, such as reading the newspaper or watching television: not at all 8. Moving or speaking so slowly that other people could have noticed. Or the opposite - being so fidgety or restless that you have been moving around a lot more than usual: not at all 9. Thoughts that you would be better off or of hurting yourself in some way: not at all Total score: 1 Depression Screening Interpretation: Negative Depression Screening Done: Yes 84767 - PHQ-9 Billing: Yes Source: Developed by Drs. Carter Heaton, Maria Ines Rushing, Terrance Bran and colleagues, with an educational arnie from [employer]. Thrive Questionnaire Date Thrive assessed: 08/06/25 I am a: Patient What is your living situation today?: I have a steady place to live Within the past 12 months, did the food you bought not last and you didn't have the money to get more?: Never true Within the past 12 months, did you worry whether your food would run out before you got money to buy more?: Never true Do you have trouble paying for medicines?: No Do you have trouble getting transportation to medical appointments?: No Do you have trouble paying your heating and electricity bill?: No Do you have trouble taking care of your child, family member or friend?: No Do you have trouble with day-to-day activities such as bathing, preparing meals, shopping, managing finances, etc.?: No Are you currently unemployed and looking for a job?: No Are you interested in more education?: No Please select the resources that you would like help with: None Currently or been in a relationship where the following occur: No concerns reported THRIVE Score: 0 AUDIT C Alcohol Use Questionnaire (AUDIT-C) 1. How often do you have a drink containing alcohol?: 2-3 times a week 2. How many drinks containing alcohol do you have on a typical day when you are drinking?: 1 or 2 3. How often do you have six or more drinks on one occasion?: Never Total Score: 3 Score Reviewed/Action Taken: Yes HAYLEY-7 AMB Questionnaire HAYLEY-7 Date HAYLEY - 7 assessed: 03/20/25 Feeling nervous, anxious, or on edge: 0 = Not at all Not being able to stop or control worryin = Not at all Worrying too much about different things: 0 = Not at all Trouble relaxin = Not at all Being so restless that it is hard to sit still: 0 = Not at all Becoming easily annoyed or irritable: 0 = Not at all Feeling afraid as if something awful might happen: 0 = Not at all Total HAYLEY-7 score (0-4 normal; 5-9 mild; 10-14 moderate; 15-21 severe): 0 Source: Developed by Drs. Carter Heaton, Maria Ines Rushing, Terrance Bran and colleagues, with an educational arnie from [employer]. HAYLEY-7 Assessment Billing HAYLEY-7 Assessment Tool: HAYLEY-7 Assessment 35125 Physical exam (Primary Care) Vital Signs: Last Vital Signs Pulse 82 08/11/25 11:57 BP 112/66 08/11/25 11:57 Pulse Ox 98 08/11/25 11:57 Oxygen Delivery Method Room Air 08/11/25 11:57 BMI result Body Mass Index 32.6 BMI Assessment/Plan discussion: High BMI High, discussed plan: lifestyle Tobacco/Smoking Status: Tobacco use Status Tobacco use date assessed 08/11/25 08/11/25 12:03 Patient Tobacco Use Status Never used Tobacco 08/11/25 12:03 e-Cigarette/Vaping Use Never Used 08/11/25 12:03 PHQ-9: PHQ-9 Score PHQ-9: Total score 1 08/11/25 12:25 Depression Screening Interpretation: Negative Thrive Assessment: Date of Thrive Assessment Date Thrive assessed 08/06/25 08/11/25 12:03 Currently or been in a relationship where the following occur: No concerns reported Const Other: General: Well developed, well nourished, in no acute distress. Appears stated age. Head: Normocephalic, atraumatic. Eyes: Pupils are equal, round and reactive to light and accommodation. Conjunctivae are clear. Vision grossly normal. Ears: TMs clear on right, Cerumen impaction Left Nose: Patent, without discharge. Mouth: There are no ulcers or lesions noted. No inflammation, no post nasal drip, no plaques nor exudates. Neck: Supple, no adenopathy or thyromegaly. Lungs: Clear to auscultation bilaterally. No rales, rhonchi or wheeze noted. Good air flow in all nicholas. Heart: Regular rate and rhythm. No murmurs, click, rubs or gallops are noted. Abdomen: Bowel sounds present in all quadrants. The abdomen is soft, nontender, with no masses or organomegaly noted. No hernias are noted. Musculoskeletal: Joints are nontender, without swelling, redness, or effusions. Range of motion is observed to be normal. Pulses: Peripheral pulses are equal and palpable bilaterally. Extremities: No clubbing, cyanosis nor edema is noted. Neurologic: Gait and station normal. Cranial Nerves 2-12 intact. Motor strength grossly symmetrical and intact. No sensory loss. Balance normal. Skin: No rashes, ulcers, or lesions noted. Turgor is good. Skin color is good. Hair and nails are without abnormalities. Psych: Normal eye contact, affect and mood appropriate, and normal interactions. Patient is alert and appropriate to context. Coding Level of Care Code Est Pt Level 3 (44475) Est Pt Prev Care 40-64y(88073) Diagnoses Encounter for general adult medical examination without abnormal findings Z00 .00 Alcohol use disorder F10.90 Obesity, Class I, BMI 30-34.9 E66.9 Vitamin D deficiency E55.9 Elevated LFTs R79.89 Screening for colon cancer Z12.11 Overactive bladder due to prolapse of female genital organ N32.81; N81.9 Perimenopause N95.1 Macrocytosis without anemia D75.89 H/O midurethral sling procedure Z98.890 Snoring R06.83 Immunization counseling Z71.85 History of mammogram Z92.89 History of Papanicolaou smear of cervix Z92.89 Additional Codes HAYLEY-7 Assessment Billing - HAYLEY-7 Assessment Tool: HAYLEY-7 Assessment 24914 ([id number]) PHQ-9 - 19205 - PHQ-9 Billing: Yes ([id number]) Assessment & Plan Assessment & Plan (1) Encounter for general adult medical examination without abnormal findings: Onset Date: ~08/11/25 Code(s): Z00.00 - Encounter for general adult medical examination without abnormal findings Category: Medical (2) Alcohol use disorder: Code(s): F10.90 - Alcohol use, unspecified, uncomplicated Category: Medical (3) Obesity, Class I, BMI 30-34.9: Code(s): E66.9 - Obesity, unspecified Category: Medical (4) Vitamin D deficiency: Code(s): E55.9 - Vitamin D deficiency, unspecified Category: Medical (5) Elevated LFTs: Code(s): R79.89 - Other specified abnormal findings of blood chemistry Category: Medical (6) Screening for colon cancer: Code(s): Z12.11 - Encounter for screening for malignant neoplasm of colon Category: Medical (7) Overactive bladder due to prolapse of female genital organ: Code(s): N32.81 - Overactive bladder; N81.9 - Female genital prolapse, unspecified Category: Medical (8) Perimenopause: Code(s): N95.1 - Menopausal and female climacteric states Category: Medical (9) Macrocytosis without anemia: Code(s): D75.89 - Other specified diseases of blood and blood-forming organs Category: Medical (10) H/O midurethral sling procedure: Code(s): Z98.890 - Other specified postprocedural states Category: Medical (11) Snoring: Code(s): R06.83 - Snoring Category: Medical (12) Immunization counseling: Code(s): Z71.85 - Encounter for immunization safety counseling Category: Medical (13) History of mammogram: Onset Date: ~2024 Code(s): Z92.89 - Personal history of other medical treatment Category: Medical (14) History of Papanicolaou smear of cervix: Onset Date: ~2021 Code(s): Z92.89 - Personal history of other medical treatment Category: Medical Plan . Orders: Orders RT home sleep study Today G47.10 - Hypersomnia, unspecified, R06.83 - Snoring Medications: Refilled mirabegron ER (Myrbetriq) 25 mg PO DAILY 90 tabs 2RF cholecalciferol (vitamin D3) 50 mcg PO DAILY 90 caps 2RF folic acid 1 mg PO DAILY 90 tabs 2RF thiamine HCl (vitamin B1) 100 mg PO DAILY 90 tabs 2RF Patient Instructions: Health screenings for women You should visit your health care provider from time to time, even if you are healthy. The purpose of these visits is to: Screen for medical issues Assess your risk for future medical problems Encourage a healthy lifestyle Update vaccinations and other preventive care services Help you get to know your provider in case of an illness Information Even if you feel fine, you should still see your provider for regular checkups. These visits can help you avoid problems in the future. For example, the only way to find out if you have high blood pressure is to have it checked regularly. High blood sugar and high cholesterol levels also may not have any symptoms in the early stages. A simple blood test can check for these conditions. There are specific times when you should see your provider or receive specific health screenings. The [place] Preventive Services Task Force publishes a list of recommended screenings. Below are screening guidelines for women ages 18 to 39. BLOOD PRESSURE SCREENING Your blood pressure should be checked at least once every 3 to 5 years if: Your blood pressure is in the normal range (top number less than 120 mm Hg and bottom number less than 80 mm Hg) You don't have risk factors for high blood pressure Ask your provider if you need your blood pressure checked more often if: The top number is 120 to 129 mm Hg or the bottom number is 70 to 79 mm Hg You have diabetes, heart disease, kidney problems, are overweight, or have certain other health conditions You have a first-degree relative with high blood pressure You are Black You had high blood pressure during a If the top number is 130 mm Hg or greater or the bottom number is 80 mm Hg or greater, this is considered stage 1 hypertension. Schedule an appointment with your provider to learn how you can reduce your blood pressure. Watch for blood pressure screenings in your area. Ask your provider if you can stop in to have your blood pressure checked. BREAST CANCER SCREENING Experts do not agree about the benefits of breast self-exams in finding breast cancer or saving lives. Talk to your provider about what is best for you. A screening mammogram is not recommended for most women under age 40. Your provider may discuss and recommend mammograms, MRI scans, or ultrasounds if you have an increased risk for breast cancer, such as: A mother or sister who had breast cancer at a young age (most often starting screening earlier than the age the close relative was diagnosed) You carry a high-risk genetic marker CERVICAL CANCER SCREENING Cervical cancer screening should start at age 21 years unless your provider advises otherwise. After the first test: Women ages 21 through 29 should have a Pap test every 3 years. Exoprts do not agree on whether HPV testing is recommended for this age group. Women ages 30 through 65 should be screened with either a Pap test every 3 years or the HPV test every 5 years or both tests every 5 years (called cotesting ). Women who have been treated for precancer (cervical dysplasia) should continue to have Pap tests for 20 years after treatment or until age 65, whichever is longer. If you have had your uterus and cervix removed (total hysterectomy), and you have not been diagnosed with cervical cancer or precancer (high grade cervical neoplasia), you do not need cervical cancer screening. CHOLESTEROL SCREENING Cholesterol screening should begin at: Age 45 for women with no known risk factors for coronary heart disease Age 20 for women with known risk factors for coronary heart disease Repeat cholesterol screening should take place: Every 5 years for women with normal cholesterol levels More often if changes occur in lifestyle (including weight gain and diet) More often if you have diabetes, heart disease, kidney problems, or certain other conditions DIABETES SCREENING You should be screened for diabetes starting at age 35 and then repeated every 3 years if you have no risk factors for diabetes. Screening may need to start earlier and be repeated more often if you have other risk factors for diabetes, such as: You have a first degree relative with diabetes. You are overweight or have obesity. You have high blood pressure, prediabetes, or a history of heart disease. Screening for diabetes should be done if you are planning to become and you are overweight and have other risk factors such as high blood pressure. DENTAL EXAM Go to the dentist once or twice every year for an exam and cleaning. Your dent ist will evaluate if you need more frequent visits. EYE EXAM Have an eye exam every 5 to 10 years before age 40. If you have vision problems, have an eye exam every 2 years or more often if recommended by your provider. You should have an eye exam that includes an examination of your retina (back of your eye) at least every year if you have diabetes. IMMUNIZATIONS Commonly needed vaccines include: Flu shot: get one every year. COVID-19 vaccine: ask your provider what is best for you. Tetanus-diphtheria and acellular pertussis (Tdap) vaccine: have one at or after age 19 as one of your tetanus-diphtheria vaccines if you did not receive it as an adolescent. Tetanus-diphtheria: have a booster (or Tdap) every 10 years. Varicella vaccine: receive 2 doses if you never had chickenpox or the varicella vaccine. Hepatitis B vaccine: receive 2, 3, or 4 doses, depending on your exact circumstances. Measles, mumps, and rubella (MMR) vaccine: receive 1 to 2 doses if you are not already immune to MMR. Your provider can tell you if you are immune. Ask your provider about the human papillomavirus (HPV) vaccine if: You have not received the HPV vaccine in the past You have not completed the full vaccine series (you should catch up on this shot) Ask your provider if you should receive other immunizations if you have certain health problems that increase your risk for some diseases such as pneumonia. INFECTIOUS DISEASE SCREENING Women who are sexually active should be screened for chlamydia and gonorrhea up until age 25. Women 25 years and older should be screened for chlamydia and gonorrhea if at high risk. Screening for hepatitis C: All adults ages 18 to 79 should get a one-time test for hepatitis C. people should be screened at every . Screening for human immunodeficiency virus (HIV): All people ages 15 to 65 should get a one-time test for HIV. Depending on your lifestyle and medical history, you may also need to be screened for infections such as syphilis and HIV, as well as other infections. PHYSICAL EXAM All adults should visit their provider from time to time, even if they are healthy. The purpose of these visits is to: Screen for disease Assess your risk of future medical problems Encourage a healthy lifestyle Update your vaccinations and other preventive care services Maintain a relationship with a provider in case of an illness Your height, weight, and BMI should be checked at every exam. During your exam, your provider may ask you about: Depression and anxiety Diet and exercise Alcohol and tobacco use Safety issues, such as using seat belts, smoke detectors, and intimate partner violence Your medicines and risk for interactions SKIN SELF-EXAM Your provider may check your skin for signs of skin cancer, especially if you're at high risk, such as if you: Have had skin cancer before Have close relatives with skin cancer Have a weakened immune system OTHER SCREENING Talk with your provider about colon cancer screening if you have a strong family history of colon cancer or polyps, or if you have had inflammatory bowel disease or polyps yourself. Routine bone density screening of women under 40 is not recommended.
--- OUTSIDE RECORDS SUMMARY | 2025-08-11 12:13 | XMS_ITS | Clinical Summary ---
Author Organization [facility] Address [address] [place] [phone] Phone Care Team Providers Care Skilled Nursing Case Manager Name Role Phone Flor Romero ACTUARIAL SCIENCE TEACHER Primary Care Provider Allergies No known active [...] 2021 ZOSTER VACCINES (1 of 2) 2021 INFLUENZA VACCINE (#1) 2025 , 09/02/2020, 09/21/2019 COVID-19 VACCINE (2024-2 6 season) 2025 10/28/2021, 03/06/2021, 02/11/2021 SMOKING STATUS SCREENING (On [...] topic Medical Devices Not on file Insurance [facility] [place] [id number] Member Subscriber Plan / Payer (Ef fective 2012-Present) Name:Ruth Garcia Relation to Subscriber:Spouse Name:JOSESARINA Leeanna Date of :1970 (Home) Address: [address] [place] [address] Payer ID:[id number] (NAIC) Type:HMO Address: [id number] [place], [place] [address] [place] [address] [place] [address] [place] [address] Care Teams Skilled Nursing Case Manager Relationship Specialty Start Date End Date Flor Romero NP [address] [facility] [address] [place] [address] PCP - General Nurse Practitioner 12/14/23 Additional Source Comments The information contained in this document represents components of the legal health record. It is not the complete legal health record.[facility]
== END 2025-08-11 12:44 | disposition home or self-care (01) ==
LOC: HO.HMCFM 11:44
PROVIDERS: PCP Nurse Practitioner Family; Visit Provider Nurse Practitioner Family
DX: Z00.00 Encounter for general adult medical examination without abnormal findings (principal); F10.90 Alcohol use, unspecified, uncomplicated; E66.9 Obesity, unspecified; Z68.32 Body mass index [BMI] 32.0-32.9, adult; E55.9 Vitamin D deficiency, unspecified; R79.89 Other specified abnormal findings of blood chemistry; Z12.11 Encounter for screening for malignant neoplasm of colon; N32.81 Overactive bladder; N81.9 Female genital prolapse, unspecified; N95.1 Menopausal and female climacteric states; D75.89 Other specified diseases of blood and blood-forming organs; Z98.890 Other specified postprocedural states

== ENCOUNTER → 2025-08-11 11:44 | Outpatient (BNVA) | payer BC, SELFPAY | PROVIDERS: PCP Nurse Practitioner Family; Visit Provider Nurse Practitioner Family | DX: Z00.00 Encounter for general adult medical examination without abnormal findings (principal); M25.562 Pain in left knee; E66.9 Obesity, unspecified; F10.90 Alcohol use, unspecified, uncomplicated; E55.9 Vitamin D deficiency, unspecified; R79.89 Other specified abnormal findings of blood chemistry; N32.81 Overactive bladder; N18.9 Chronic kidney disease, unspecified; N95.1 Menopausal and female climacteric states; D75.89 Other specified diseases of blood and blood-forming organs; R06.83 Snoring; Z71.85 Encounter for immunization safety counseling; Z68.32 Body mass index [BMI] 32.0-32.9, adult; Z98.890 Other specified postprocedural states | CPT/HCPCS: 96127 ==

== ENCOUNTER 2025-08-22 07:35 | Outpatient (AMB) | payer BC, SELFPAY ==
--- OUTSIDE RECORDS SUMMARY | 2023-12-14 10:13 | XMS_ITS | Encounter Summary ---
Author Organization [facility] Address [address] [place] [address] Phone Care Team Providers Care Seaming Machine Operator Name Role Phone Folr Romero PRINCIPAL NETWORK ENGINEER Primary Care Provider Encounter Details Date Type Department Care Team (Late st Contact Info) Description 12/14/2023 9:13 AM EST Hospital Encounter [facility] [address] [place] [phone] Mercedes Brown, PRINCIPAL NETWORK ENGINEER [address] [place] [address] [email or web address] Social History Tobacco Use Types Packs/Day Years [...] IMPRESSION: No acute findings. us Mercedes Brown PRINCIPAL NETWORK ENGINEER IMG XR CHEST Final Resul t documented in this encounter Visit Diagnoses Not on filedocumented in this encounter Care Teams Seaming Machine Operator Relationship Specialty Start Date End Date Flor Romero NP [address] [facility] [address] [place] [phone] PCP - General Nurse Practitioner 12/14/23 documented as of this encounter Additional Source Comments The information contained in this document represents components of the legal health record. It is not the complete legal health record.[facility]
--- OUTSIDE RECORDS SUMMARY | 2025-08-22 07:41 | XMS_ITS | Clinical Summary ---
Author Organization [facility] Address [address] [place] [address] Phone Care Team Providers Care Digital Proofing And Platemaker Name Role Phone Flor Romero GLASS BLOCK BENDER Primary Care Provider Allergies No known active [...] topic Medical Devices Not on file Insurance [facility] [address] Member Subscriber Plan / Payer (Ef fective 2012-Present) Name:Ruth Garcia Relation to Subscriber:Spouse Name:JOSESARINA Leeanna Date of :1970 (Home) Address: [address] [place] [address] Payer ID:[id number] (NAIC) Type:HMO Address: [id number] [place], [place] [address] [place] [address] [place] [address] [place] [address] Care Teams Digital Proofing And Platemaker Relationship Specialty Start Date End Date Flor Romero NP [address] [facility] [address] [place] [address] PCP - General Nurse Practitioner 12/14/23 Additional Source Comments The information contained in this document represents components of the legal health record. It is not the complete legal health record.[facility]
--- NOTE | 2025-08-22 07:47 | MHC.OFFVIS ---
Intake Visit Reasons: OV-Lt Knee 06/05/25 Intake Note: Ruth is a 55 year old female who presents with complaints of progressively worsening left knee pain. She describes her pain as sharp and severe in nature. Her pain has gotten worse over the last few years in spite of continued non operative treatments as well as multiple left knee arthroscopic surgeries. Her most recent left knee arthroscopic surgery was in May. She got minimal relief from that procedure. At this point her left knee pain is interfering with her activities of daily living and her ability to sleep well through the night. She has had cortisone injections which gave her minimal relief. She has not had a viscosupplementation injection. The patient has difficulty walking even short distances because of her pain. She has tried Tylenol and anti-inflammatory medicines as well as physical therapy exercises which gave her minimal relief. Allergies No Known Allergies Allergy (Verified 08/22/25 07:47) Medication List - Last Reconciled 08/22/25 by Mario Covington MD cholecalciferol (vitamin D3) 50 mcg PO DAILY diclofenac sodium 50 mg PO BID folic acid 1 mg PO DAILY ibuprofen 800 mg PO Q8H PRN mirabegron ER (Myrbetriq) 25 mg PO DAILY thiamine HCl (vitamin B1) 100 mg PO DAILY PFSH Medical History Overactive bladder Surgical History History of bladder surgery Hx of bilateral breast reduction surgery H/O arthroscopic knee surgery Family History Father Diabetes Mother Breast cancer Cervical cancer Social History Household Members: Spouse Both parents involved: No Caregiver staying overnight: No Housing: House Are you a primary primary care sales representative to a significant other at home: No Do you presently have visiting nurse or other home services: No 75 years or older and lives alone: No Alcohol intake: current Alcohol intake frequency: 0-2 drinks per day Alcohol type: beer and wine Patient Tobacco Use Status: Never used Tobacco e-Cigarette/Vaping Use: Never Used Second Hand Smoke Exposure: No service: No Current occupational status: 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 Cognitive needs: No Hearing needs: No Vision needs: Yes (wear glasses) Physical Exam Const Other: Well-nourished well-developed very friendly female awake alert and oriented x3 in no acute distress Extrem Other: Left knee examination shows a minimal effusion, palpable crepitus with range of motion, pain with range of motion, range of motion from -3 degrees to 115 degrees, no instability Results Reviewed Results Reviewed: Arthroscopic photographs of the patient's left knee from 06/05/2025 show end-stage degenerative joint disease with grade 4 degenerative changes involving the medial femoral condyle and medial tibial plateau Assessment & Plan Assessment & Plan (1) Arthritis of left knee: Code(s): M17.12 - Unilateral primary osteoarthritis, left knee Category: Medical Plan Ms. Kaufman presents with progressively worsening left knee pain due to end-stage degenerative joint disease. I had a lengthy discussion with the patient regarding the treatment options. I will see if the patient's insurance company will cover a viscosupplementation injection, such as Durolane. The patient is also considering undergoing left total knee replacement surgery early next year. She will contact my office to pick a surgery date if she chooses to do so. Otherwise she will follow up as instructed. Feel free to call me at any time should questions regarding her orthopedic management arise. I spent 20 minutes in reviewing the patient's records and imaging studies, seeing the patient and documenting in the medical record. Coding Level of Care Code Global (88561) Diagnoses Arthritis of left knee M17.12
== END 2025-08-22 07:57 | disposition home or self-care (01) ==
LOC: HO.HOS 07:35
PROVIDERS: PCP Nurse Practitioner Family; Visit Provider Orthopaedic Surgery
DX: M17.12 Unilateral primary osteoarthritis, left knee (principal)
CPT/HCPCS: 99024

== ENCOUNTER 2025-10-05 12:42 | Outpatient (AMB) | payer BC, SELFPAY ==
--- OUTSIDE RECORDS SUMMARY | 2023-12-14 09:13 | XMS_ITS | Encounter Summary ---
Author Organization [facility] Address [address] [place] [address] Phone Care Team Providers Care Capacitor Pack Press Operator Name Role Phone Flor Romero WATER REGISTRAR Primary Care Provider Encounter Details Date Type Department Care Team (Late st Contact Info) Description 12/14/2023 9:13 AM EST Hospital Encounter [facility] [address] [place] [phone] Mercedes Brown, WATER REGISTRAR [address] [place] [address] [email or web address] Social History Tobacco Use Types Packs/Day Years [...] IMPRESSION: No acute findings. us Mercedes Brown WATER REGISTRAR IMG XR CHEST Final Resul t documented in this encounter Visit Diagnoses Not on filedocumented in this encounter Care Teams Capacitor Pack Press Operator Relationship Specialty Start Date End Date Flor Romero NP [address] [facility] [address] [place] [phone] PCP - General Nurse Practitioner 12/14/23 documented as of this encounter Additional Source Comments The information contained in this document represents components of the legal health record. It is not the complete legal health record.[facility]
--- NOTE | 2025-10-05 12:43 | A.OFFPC_ITS ---
Vital Signs 10/05/25 12:49 Height 5 ft 8 in Weight 217 lb BMI 33.0 BP 134/74 Blood Pressure Location Rt brachial Position Sitting Respiration 13 Pulse 78 Pulse Source Pulse Oximeter Temp 97.3 F Temp Source Oral Pulse Oximetry (%) 99 Oxygen Delivery Method Room Air Intake Visit Reasons: TKA w/Dr. Covington 11/13/25. See comments Intake Note: Pre op for TKA w/ Rcp Required: No Allergies No Known Allergies Allergy (Verified 10/05/25 12:44) Medication List - Last Reconciled 10/05/25 by Nohemy Alfredo, RAMP AND CARGO SUPERVISOR- cholecalciferol (vitamin D3) 50 mcg PO DAILY diclofenac sodium 50 mg PO BID folic acid 1 mg PO DAILY ibuprofen 800 mg PO Q8H PRN mirabegron ER (Myrbetriq) 25 mg PO DAILY thiamine HCl (vitamin B1) 100 mg PO DAILY walker Folding front wheeled walker Tobacco use date assessed: 10/05/25 Dental Screening Dental Screen Date: 10/05/25 Did you have a dental visit in the last 12 months?: Yes Did you have a dental problem in the last 6 months where you did not have access to dental care?: No Was dental information given to patient?: Patient has dentist HPI HPI Comments History of Present Illness Details 55 y/o F with perimenopause, overactive bladder, obesity, alcohol use disorder, Vit D def s/p left knee surgery x 2 1988, 2010, breast reduction 2007, bladder sling , Left knee arthroscopic partial medial meniscectomy. Dr Rubio 04/2025 Fhx:Mom with postmenopausal breast cancer dx 56, . 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 DEXA n/a PAP Oct 2022 WNL, IUD in place managed by Dr Lei Gonzales 08/03/24, Flu will get at school. Specialists: QUARTER SEAMER @ [facility] Dr Negron, has appt in Nov. feels like bladder sling is failing; ran out of myrbetriq; was working great, stopped taking GI [facility] had appt, no findings. [facility] History of Present Illness The patient is a 55-year-old female presenting for preoperative clearance for a left total knee arthroplasty. Osteoarthritis of left knee: - The patient is scheduled to undergo a left total knee arthroplasty on November 13. - She has a history of three prior arthr oscopic surgeries on the affected knee; the first at age 19 for a soccer injury, a second in her 40s for arthritis, and a third this past summer which was unsuccessful and left the knee [id number]. - Due to compensatory weight bearing, aimee saunders is beginning to experience soreness in her right knee. - She reports not taking any prescriptio n pain medications and only occasionally uses Advil. History of postoperative nausea and vomiting: - The patient has a history of postopera tive nausea and vomiting with every prior surgery. - This has been successfully prevented s javier she began requesting prophylactic anti-nausea medication from the anesthesiologist. - She denies any history of breathing pr oblems, difficulty waking up, or seizures associated with anesthesia. Obesity: - The patient has a past medical history of obesity. - Her brick tender recently expressed co ncern about the impact of her weight on her joints and suggested she would be a candidate for GLP-1 agonists. Alcohol use disorder: - She has a history of alcohol use disor janis and was previously drinking most days. - She reports that she has significantly reduced her alcohol intake since July and now only drinks on weekends, consuming about four glasses per week. Suspected obstructive sleep apnea: - A sleep study was ordered in July , however, the patient was never contacted for scheduling. - She is considered a suspect for obstru ctive sleep apnea. Past Medical History: - The patient's medical history is also significant for perimenopause, overactive bladder, and vitamin D deficiency. - She denies any history of cardiac prob lems, asthma, COPD, diabetes, heart attack, heart failure, or heart valve disease. - She also denies smoking and any illici t drug use. Surgery Type: Left TKA Anesthesia Type: General Surgeon: Dr Covington Date: 11/13/25 Any past surgical procedures: Y see above Any complications from anesthesia or in post-op period: PONV ASA or NSAID Use: Denies Current smoker: Denies Alcohol use: drinking on weekend only Drug use: Denies METs: > 4 climb flight of stairs, golf, walk, yardwork Medical history: Asthma N COPD N Obesity BMI 33 Diabetes N MA < 6 weeks, unstable angina, CHF, severe valve disease: N Past Medical History - Perimenopause - Overactive bladder - Obesity - Alcohol use disorder, in partial remis marianna - Vitamin D deficiency - History of postoperative nausea and vo miting - Surgical History: Three prior arthrosc opic surgeries on the left knee; hospitalized wisdom teeth extraction. Review of Systems - Constitutional: Denies fever and chill s. - HEENT: Denies runny nose. - Cardiovascular: Denies chest pain. - Respiratory: Denies cough. Denies hist ory of asthma or COPD. - Gastrointestinal: Reports a history of postoperative nausea and vomiting. - Musculoskeletal: Reports chronic left knee pain. Reports recent onset of soreness in the right knee. - Endocrine: Denies diabetes. - All other systems reviewed and are neg ative. Physical Exam General: Well developed, well nourished, in no acute distress. Appears stated age. Head: Normocephalic, atraumatic. Eyes: Pupils are equal, round and reactive to light and accommodation. Conjunctivae are clear. Lungs: Clear to auscultation bilaterally. No rales, rhonchi or wheeze noted. Good air flow in all nicholas. Heart: Regular rate and rhythm. No murmurs, click, rubs or gallops are noted. Pulses: Peripheral pulses are equal and palpable bilaterally. Extremities: No clubbing, cyanosis nor edema is noted. Psych: Mood and affect appropriate Results - EKG: NSR - Labs: Hemoglobin A1c 5.2% - Preoperative labs are pending; the [facility] ient will have them drawn on Thursday morning. Medical Decision Making The patient is a 55-year-old female who presents for preoperative clearance for a left total knee arthroplasty. Her cardiac history is unremarkable, and her EKG and hemoglobin A1c are normal, deeming her a low-risk candidate for the planned procedure under general anesthesia. However, final clearance is contingent upon the results of her pending lab work. Her history of postoperative nausea and vomiting is noted and has been effectively managed with prophylactic antiemetics, which she will request again. She has been counseled to avoid NSAIDs for two weeks prior to surgery to minimize bleeding risk. The patient's obesity is a significant comorbid condition contributing to her osteoarthritis. To address this, a referral to a medical weight management program has been placed to explore treatment options, including GLP-1 agonists, which require this pathway for insurance coverage. Furthermore, due to suspicion of obstructive sleep apnea (NADIRA), a previous unfulfilled order for a sleep study has been canceled and reordered with an urgent status. The patient has been instructed to inform the anesthesia team about her pending NADIRA evaluation. Plan 1. Preoperative Evaluation - The patient is conditionally cleared f or her upcoming left total knee arthroplasty, pending review of preoperative lab results. - The patient will complete the required lab work on Thursday morning. - She was counseled to hold all NSAIDs ( e.g., aspirin, diclofenac, Aleve, ibuprofen) for two weeks prior to her surgery and to use Tylenol for pain management if needed. 2. Obesity - A referral was placed to the [facility] management program to address obesity and its impact on her joints. - This referral is necessary for potenti al insurance coverage of GLP-1 agonist medications. 3. Suspected Obstructive Sleep Apnea - The previous order for a sleep study w as canceled and a new, urgent order was placed. - The patient was advised to inform her surgical pre-op team that she is a suspect for sleep apnea with a study pending. 4. History Of Postoperative Nausea And V omiting - The patient's history was noted, and s he will inform the anesthesiologist during her pre-op appointment to ensure she receives prophylactic antiemetics. 5. Health Maintenance - Follow-up is scheduled for her annual physical next year, unless new issues arise. Patient Instructions - Your surgical clearance depends on lab work. Please go to the lab to have your blood drawn on Thursday at 7:30 AM. - Do not take aspirin or NSAIDs like Adv il, Aleve, or diclofenac for two weeks before your surgery, as they can increase bleeding risk. You may take Tylenol for pain. - A [facility]. They will call you to set up an appointment. - An urgent sleep study has been ordered . If you do not hear from them to schedule it, please send a message through the patient portal. - At your pre-op appointment, inform the team that you have a history of nausea after surgery and that you are suspected of having sleep apnea, with a study pending. - We will contact you if your lab result s are abnormal to discuss the findings and any next steps. - Your next follow-up appointment will b e for your annual physical next year unless anything comes up sooner. Consent Patient was informed and verbally consented to the use of an ambient scribe for clinic note documentation during this visit. Total time spent caring for the patient today was 45 minutes. This includes time spent before the visit reviewing the chart, time spent during the visit, and time spent after the visit on documentation, reviewing laboratory results, diagnostic imaging, medications, performing a medically necessary evaluation, counseling on diagnoses, care coordination, ordering appropriate tests, ordering appropriate medications, review of tests performed by other providers, reporting test results with the patient, communication with other healthcare providers. [facility] Medical History Overactive bladder Surgical History History of bladder surgery Hx of bilateral breast reduction surgery H/O arthroscopic knee surgery Family History Father Diabetes Mother Breast cancer Cervical cancer Social History Household Members: Spouse Both parents involved: No Caregiver staying overnight: No Housing: House Are you a primary zoo caretaker to a significant other at home: No Do you presently have visiting nurse or other home services: No 75 years or older and lives alone: No Alcohol intake: current Alcohol intake frequency: 0-2 drinks per day Alcohol type: beer and wine Patient Tobacco Use Status: Never used Tobacco e-Cigarette/Vaping Use: Never Used Second Hand Smoke Exposure: No service: No Current occupational status: 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 Cognitive needs: No Hearing needs: No Vision needs: Yes (wear glasses) Questionnaire Thrive Questionnaire Date Thrive assessed: 08/06/25 I am a: Patient What is your living situation today?: I have a steady place to live Within the past 12 months, did the food you bought not last and you didn't have the money to get more?: Never true Within the past 12 months, did you worry whether your food would run out before you got money to buy more?: Never true Do you have trouble paying for medicines?: No Do you have trouble getting transportation to medical appointments?: No Do you have trouble paying your heating and electricity bill?: No Do you have trouble taking care of your child, family member or friend?: No Do you have trouble with day-to-day activities such as bathing, preparing meals, shopping, managing finances, etc.?: No Are you currently unemployed and looking for a job?: No Are you interested in more education?: No Please select the resources that you would like help with: None Currently or been in a relationship where the following occur: No concerns reported THRIVE Score: 0 HAYLEY-7 AMB Questionnaire HAYLEY-7 Date HAYLEY - 7 assessed: 03/20/25 Source: Developed by Drs. Carter Heaton, Maria Ines Rushing, Terrance Bran and colleagues, with an educational arnie from [employer]. Physical exam (Primary Care) Vital Signs: Last Vital Signs Temp 97.3 F 10/05/25 12:49 Pulse 78 10/05/25 12:49 Resp 13 10/05/25 12:49 BP 134/74 10/05/25 12:49 Pulse Ox 99 10/05/25 12:49 Oxygen Delivery Method Room Air 10/05/25 12:49 BMI result Body Mass Index 33.0 Tobacco/Smoking Status: Tobacco use Status Tobacco use date assessed 10/05/25 10/05/25 12:46 Patient Tobacco Use Status Never used Tobacco 10/05/25 12:46 e-Cigarette/Vaping Use Never Used 10/05/25 12:46 Thrive Assessment: Date of Thrive Assessment Date Thrive assessed 08/06/25 10/05/25 12:46 Currently or been in a relationship where the following occur: No concerns reported Office Procedures EKG 15650-[id number], Complete Results AMB Hemoglobin A1c AMB Hemoglobin A1c 5.2 % Last Edit by Ector King MA on 10/05/25 13:00 Results Reviewed Results Reviewed: Laboratory Last Values Hgb A1c (Clinic) 5.2 % (4.0-6.0) 10/05/25 13:00 Coding Level of Care Code Est Pt Level 5 (55841) Complex EM visit Add On G2211 Diagnoses Pre-operative clearance Z01.818 PONV (postoperative nausea and vomiting) R11.2; Z98.890 Obesity, Class I, BMI 30-34.9 E66.9 Hypersomnia G47.10 Alcohol use disorder F10.90 Tear of medial meniscus of left knee S83.242A CPT Codes EKG - CPT: 58961-[id number], Complete ([id number]) Assessment & Plan Assessment & Plan (1) Pre-operative clearance: Code(s): Z01.818 - Encounter for other preprocedural examination (2) PONV (postoperative nausea and vomiting): Code(s): R11.2 - Nausea with vomiting, unspecified; Z98.890 - Other specified postprocedural states Category: Medical (3) Obesity, Class I, BMI 30-34.9: Code(s): E66.9 - Obesity, unspecified Category: Medical (4) Hypersomnia: Code(s): G47.10 - Hypersomnia, unspecified Category: Medical (5) Alcohol use disorder: Code(s): F10.90 - Alcohol use, unspecified, uncomplicated Category: Medical (6) Tear of medial meniscus of left knee: Code(s): S83.242A - Other tear of medial meniscus, current injury, left knee, initial e ncounter Category: Medical Plan . Orders: Orders AMB Hemoglobin A1c Today Z13.9 - Encounter for screening, unspecified RT home sleep study Today E66.9 - Obesity, unspecified, G47.10 - Hypersomnia, unspecified, R06.83 - Snoring Referrals Medical Weight Management Referral E66.9 - Obesity, unspecified
[2025-10-05 12:49] VITALS: BP 134/74; PULSE 78; RESP 13; TEMP 36.3; O2SAT 99; BMI 33.0
--- OUTSIDE RECORDS SUMMARY | 2025-10-05 15:49 | XMS_ITS | Clinical Summary ---
Author Organization [facility] Address [address] [place] [address] Phone Care Team Providers Care Corporate Sales Representative Name Role Phone Flor Romero TOOLROOM KEEPER Primary Care Provider Allergies No known active [...] on patient's age to complete this topic IPV VACCINES Aged Out No longer eligi ble based on patient's age to complete this topic MENINGOCOCCAL VACCINES (ACWY) Aged Out No longer eligible based on patient's age to complete this topic MENINGOCOCCAL VACCINES (B) Aged Out N o longer eligible based on patient's age to complete this topic Medical Devices Not on file Insurance [facility] [address] [place] [address] [place] [address] [place] [address] [place] [address] Care Teams Corporate Sales Representative Relationship Specialty Start Date End Date Flor Romero NP [address] [facility] [address] [place] [address] PCP - General Nurse Practitioner 12/14/23 Additional Source Comments The information contained in this document represents components of the legal health record. It is not the complete legal health record.[facility]
== END 2025-10-05 13:23 | disposition home or self-care (01) ==
LOC: HO.HMCFM 12:43
PROVIDERS: PCP Nurse Practitioner Family; Visit Provider Nurse Practitioner Family
DX: Z01.818 Encounter for other preprocedural examination (principal); R11.2 Nausea with vomiting, unspecified; Z98.890 Other specified postprocedural states; E66.9 Obesity, unspecified; G47.10 Hypersomnia, unspecified; F10.90 Alcohol use, unspecified, uncomplicated; S83.242A Other tear of medial meniscus, current injury, left knee, initial encounter; Z68.33 Body mass index [BMI] 33.0-33.9, adult

== ENCOUNTER → 2025-10-05 12:42 | Outpatient (BNVA) | payer BC, SELFPAY | PROVIDERS: PCP Nurse Practitioner Family; Visit Provider Nurse Practitioner Family | DX: Z01.818 Encounter for other preprocedural examination (principal); S83.242A Other tear of medial meniscus, current injury, left knee, initial encounter; R11.2 Nausea with vomiting, unspecified; E66.9 Obesity, unspecified; G47.10 Hypersomnia, unspecified; F10.90 Alcohol use, unspecified, uncomplicated; Z68.33 Body mass index [BMI] 33.0-33.9, adult; Z79.899 Other long term (current) drug therapy; Z98.890 Other specified postprocedural states | CPT/HCPCS: 83036; 93005 ==

== ENCOUNTER 2025-10-09 07:40 | Outpatient (REF) | payer BC, SELFPAY ==
--- OUTSIDE RECORDS SUMMARY | 2023-12-14 09:13 | XMS_ITS | Encounter Summary ---
Author Organization [facility] Address [address] [place] [address] Phone Care Team Providers Care Switchboard Operator Receptionist Name Role Phone Flor Romero ENVIRONMENTAL COMPLIANCE TECHNICIAN Primary Care Provider Encounter Details Date Type Department Care Team (Late st Contact Info) Description 12/14/2023 9:13 AM EST Hospital Encounter [facility] [address] [place] [phone] Mercedes Brown, ENVIRONMENTAL COMPLIANCE TECHNICIAN [address] [place] [address] [email or web address] Social History Tobacco Use Types Packs/Day Years [...] IMPRESSION: No acute findings. us Mercedes Brown ENVIRONMENTAL COMPLIANCE TECHNICIAN IMG XR CHEST Final Resul t documented in this encounter Visit Diagnoses Not on filedocumented in this encounter Care Teams Switchboard Operator Receptionist Relationship Specialty Start Date End Date Flor Romero NP [address] [facility] [address] [place] [id number] PCP - General Nurse Practitioner 12/14/23 documented as of this encounter Additional Source Comments The information contained in this document represents components of the legal health record. It is not the complete legal health record.[facility]"
--- OUTSIDE RECORDS SUMMARY | 2025-10-09 08:03 | XMS_ITS | Clinical Summary ---
Author Organization [facility] Address [address] [place] [address] Phone Care Team Providers Care Dairy Farm Worker Name Role Phone Flor Romero MACHINE APPLICATOR CEMENTER Primary Care Provider Allergies No known active [...] topic Medical Devices Not on file Insurance [facility] [place] [address] [place] [address] [place] [address] [place] [address] [place] [address] Care Teams Dairy Farm Worker Relationship Specialty Start Date End Date Flor Romero NP [address] [facility] [address] [place] [address] PCP - General Nurse Practitioner 12/14/23 Additional Source Comments The information contained in this document represents components of the legal health record. It is not the complete legal health record.[facility]
[2025-10-09 12:10] LABS: Hematocrit 45.3 % (37.0-47.0); Hemoglobin 15.5 g/dl (12.0-16.0); Mean Corpuscular HGB Conc 34.2 g/dl (31.0-35.0); Mean Corpuscular Hemoglobin 34.9 pg (27.0-33.0); Mean Corpuscular Volume 102.0 fL (80.0-98.0); NRBC Abs Auto 0.000 X10*3/uL (0.0-0.012); NRBC Pct Auto 0.0 /100WBC (0.0-0.2); Platelet Count 320 X10*3/uL (160-400); Red Blood Count 4.44 X10*6/uL (4.20-5.50); White Blood Count 5.7 X10*3/uL (4.8-10.8)
[2025-10-09 12:43] LABS: Alanine Aminotransferase 43 U/L (0-31); Albumin Level 4.3 g/dL (3.5-5.0); Alkaline Phosphatase 58 U/L (39-117); Anion Gap 15 (12-20); Aspartate Amino Transferase 38 U/L (5-31); Blood Urea Nitrogen 11 mg/dL (9-16); Calcium 9.6 mg/dL (8.4-10.2); Carbon Dioxide 23 mmol/L (22-29); Chloride 105 mmol/L (96-108); Cholesterol 177 mg/dL (<200); Estimated Glomerular Filt Rate 60; HDL Cholesterol 52 mg/dL (>40); Iron 93 mcg/dL (30-160); Percent Iron Saturation 38 % (15-50); Potassium 4.0 mmol/L (3.3-5.1); Sodium 139 mmol/L (135-145); Total Iron Binding Capacity 248 mcg/dL (228-428); Total Protein 7.3 g/dL (6.5-8.0); Triglycerides 176 mg/dL (<150); Unsaturated Iron Binding 155 ug/dL
[2025-10-09 13:03] LABS: Folate 13.6 ng/mL (> or = 4.0); Vitamin B12 311 pg/mL (200-900)
== END 2025-10-09 07:41 | disposition home or self-care (01) ==
LOC: HO.WFDLDS 07:40
PROVIDERS: Visit Provider Nurse Practitioner Family
DX: Z00.00 Encounter for general adult medical examination without abnormal findings (principal); E66.9 Obesity, unspecified; F10.90 Alcohol use, unspecified, uncomplicated; E55.9 Vitamin D deficiency, unspecified; N95.1 Menopausal and female climacteric states; R79.89 Other specified abnormal findings of blood chemistry; D75.89 Other specified diseases of blood and blood-forming organs; Z13.29 Encounter for screening for other suspected endocrine disorder
CPT/HCPCS: 36415; 80053; 80061; 82306; 82607; 82746; 83540; 84443; 85027

== ENCOUNTER → 2025-10-12 10:30 | Outpatient (BNVA) | payer BC, SELFPAY | PROVIDERS: PCP Nurse Practitioner Family | DX: Z01.818 Encounter for other preprocedural examination (principal) ==

== ENCOUNTER 2025-11-09 08:06 | Outpatient (AMB) | payer BC, SELFPAY ==
--- NOTE | 2025-11-09 08:12 | MHC.OFFVIS ---
Vital Signs 11/09/25 08:13 Height 5 ft 8 in Weight 211 lb BMI 32.1 Intake Visit Reasons: Pre-Op: L TKA w/ 11/13/25 Intake Note: Ruth is a 55 year old female who presents with complaints of progressively worsening left knee pain. She describes her pain as sharp and severe in nature. She has undergone left knee arthroscopic surgery in the past. The surgery gave her minimal relief. At this point the patient's left knee pain is interfering with her activities of daily living and her ability to sleep well through the night. The patient has had multiple injections in the past. The most recent injection gave her no relief. She has also tried Tylenol, diclofenac and physical therapy exercises which gave her minimal relief. The patient has difficulty walking even short distances because of her left knee pain. Allergies No Known Allergies Allergy (Verified 11/09/25 08:12) Medication List - Last Reconciled 11/09/25 by Mario Covington MD cholecalciferol (vitamin D3) 50 mcg PO DAILY diclofenac sodium 50 mg PO BID PRN folic acid 1 mg PO DAILY mirabegron ER (Myrbetriq) 25 mg PO DAILY thiamine HCl (vitamin B1) 100 mg PO DAILY walker Folding front wheeled walker [facility] Medical History Osteoarthritis PONV (postoperative nausea and vomiting) Overactive bladder Surgical History H/O wisdom tooth extraction History of bladder surgery Hx of bilateral breast reduction surgery H/O arthroscopic knee surgery (06/05/25) Family History Father Diabetes Mother Breast cancer Cervical cancer Social History Household Members: Family Both parents involved: No Caregiver staying overnight: No Housing: House Are you a primary home health care case manager to a significant other at home: No Do you presently have visiting nurse or other home services: No 75 years or older and lives alone: No Alcohol intake: current Alcohol intake frequency: 0-2 drinks per day Alcohol type: beer and wine Patient Tobacco Use Status: Never used Tobacco e-Cigarette/Vaping Use: Never Used Second Hand Smoke Exposure: No service: No Current occupational status: 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 Cognitive needs: No Hearing needs: No Vision needs: Yes (wear glasses) Physical Exam Vital Signs: BMI result Body Mass Index 32.1 Extrem Other: Left knee examination shows a minimal effusion, palpable crepitus with range of motion, pain with range of motion, range of motion from -3 degrees to 115 degrees, no instability Results Reviewed Results Reviewed: X-rays of the patient's left knee show end-stage degenerative joint disease with grade 4 [id number] arthritis, subchondral sclerosis, osteophyte formation, no acute bony abnormalities Assessment & Plan Assessment & Plan (1) Osteoarthritis of left knee: Code(s): M17.12 - Unilateral primary osteoarthritis, left knee Category: Medical Plan Ms. Kaufman presents with progressively worsening left knee pain due to end-stage degenerative joint disease. I had a lengthy discussion with the patient regarding the treatment options. At this point she has failed continued non operative treatments as well as arthroscopic surgery. The risks and benefits of left total knee replacement surgery were discussed at length with the patient. The patient wishes to proceed. hr shared services consultant will be consulted following her surgery for home physical therapy and nursing. The patient will follow up as instructed. Feel free to call me at any time should questions regarding her orthopedic management arise. I spent 20 minutes in reviewing the patient's records and imaging studies, seeing the patient and documenting in the medical record. Coding Level of Care Code Est Pt Level 3 (64625) Add On Problem Visit Only Diagnoses Osteoarthritis of left knee M17.12
[2025-11-09 08:13] VITALS: BMI 32.1
== END 2025-11-09 08:23 | disposition home or self-care (01) ==
LOC: HO.HOS 08:07
PROVIDERS: PCP Nurse Practitioner Family; Visit Provider Orthopaedic Surgery
DX: M17.12 Unilateral primary osteoarthritis, left knee (principal)
CPT/HCPCS: 99024

== ENCOUNTER 2025-11-09 09:03 | Outpatient (REF) | payer BC, SELFPAY ==
--- OUTSIDE RECORDS SUMMARY | 2023-12-14 09:13 | XMS_ITS | Encounter Summary ---
Author Organization [facility] Address [address] [place] [address] Phone Care Team Providers Care Returned Materials Inspector Name Role Phone Flor Romero GUIDE DELEGATE Primary Care Provider Encounter Details Date Type Department Care Team (Late st Contact Info) Description 12/14/2023 9:13 AM EST Hospital Encounter [facility] [address] [place] [phone] Mercedes Brown, GUIDE DELEGATE [address] [place] [address] [email or web address] Social History Tobacco Use Types Packs/Day Years Used Date Smoking Tobacco: Never Smokeless Tobacco: Never Education Answer Date Recorded Are you interested in more education? Not on migdalia e 12/14/2023 Are you concerned about learning? Not on file 12/14/2023 No 12/14/2023 No 12/14/2023 Digital Access Answer Date Recorded No 12/14/2023 No 12/14/2023 Reliable internet access at home? Not on file 12/14/2023 Device with a working camera? Not on file Comments Unknown Sex and Gender Information Value Date Recorded Sex Assigned at Not on file Legal Sex Female 8:16 AM EST Gender Identity Not on file Sexual Orientation Not on file documented as of this encounter Plan of Treatment Not on file documented as of this encounter Procedures Procedure Name Priority Date/Time Associated Diagnosis Comments XR CHEST PA AND LATERAL 2 VIEWS Urgent/patient waiting 12/14/2023 9:18 AM EST Cough documented in this encounter Results * XR CHEST PA AND LATERAL 2 VIEWS (12/14/2023 9:18 AM EST) Anatomical Region Laterality Modality Chest Computed Radiogr aphy 12/14/2023 9:21 AM EST Impressions 12/14/2023 9:21 AM EST No acute findings. Narrative 12/14/2023 9:21 AM EST XR CHEST PA AND LATERAL 2 VIEWS Referring clinician's provided indication for this examination in Epic: Cough; ? PNA COMPARISON: Non- FINDINGS: Lungs: Clear lungs. Pleura: No pleural effusion. No pneumothorax Heart/Mediastinum: Heart size normal. Bones/Soft Tissues: No acute finding Procedure Note Torey Emmanuel MD, SAROJ - 12/14/2023 XR CHEST PA AND LATERAL 2 VIEWS Referring clinician's provided indication for this examination in Epic:Cough; ? PNA COMPARISON: Non- FINDINGS: Lungs: Clear lungs. Pleura: No pleural effusion. No pneumothorax Heart/Mediastinum: Heart size normal. Bones/Soft Tissues: No acute finding IMPRESSION: No acute findings. us Mercedes Brown GUIDE DELEGATE IMG XR CHEST Final Resul t documented in this encounter Visit Diagnoses Not on filedocumented in this encounter Care Teams Returned Materials Inspector Relationship Specialty Start Date End Date Flor Romero NP [address] [facility] [address] [place] [id number] PCP - General Nurse Practitioner 12/14/23 documented as of this encounter Additional Source Comments The information contained in this document represents components of the legal health record. It is not the complete legal health record.[facility]
[2025-11-09 09:44] LABS: Hematocrit 43.8 % (37.0-47.0); Hemoglobin 15.2 g/dl (12.0-16.0); Mean Corpuscular HGB Conc 34.7 g/dl (31.0-35.0); Mean Corpuscular Hemoglobin 34.6 pg (27.0-33.0); Mean Corpuscular Volume 99.8 fL (80.0-98.0); NRBC Abs Auto 0.000 X10*3/uL (0.0-0.012); NRBC Pct Auto 0.0 /100WBC (0.0-0.2); Platelet Count 283 X10*3/uL (160-400); Red Blood Count 4.39 X10*6/uL (4.20-5.50); White Blood Count 5.9 X10*3/uL (4.8-10.8)
[2025-11-09 10:05] LABS: Anion Gap 12 (12-20); Blood Urea Nitrogen 16 mg/dL (9-16); Calcium 9.1 mg/dL (8.4-10.2); Carbon Dioxide 24 mmol/L (22-29); Chloride 108 mmol/L (96-108); Estimated Glomerular Filt Rate > 60; Potassium 4.4 mmol/L (3.3-5.1); Sodium 140 mmol/L (135-145)
--- OUTSIDE RECORDS SUMMARY | 2025-11-09 10:12 | XMS_ITS | Clinical Summary ---
Author Organization [facility] Address [address] [place] [id number] Phone Care Team Providers Care Pool Coordinator Name Role Phone Flor Romero CATEGORY SPECIALIST Primary Care Provider Allergies No known active [...] topic Medical Devices Not on file Insurance [employer] Member Subscriber Plan / Payer (Ef fective 2012-Present) Name:Ruth Garcia Relation to Subscriber:Spouse Name:SARINA GARCIA Date of :1970 (Home) Address: [address] [place] [address] Payer ID:[id number] (NAIC) Type:HMO Address: [address] [place], [place] [address] Member Subscriber Plan / Payer (Ef fective 2012-Present) Name:Ruth Garcia Relation to Subscriber:Spouse Name:SARINA GARCIA Date of :1970 (Home) Address: [address] [place] [address] Payer ID:[id number] (NAIC) Type:HMO Address: [address] [place], [place] [address] Member Subscriber Plan / Payer (Ef fective 2012-Present) Name:Ruth Garcia Relation to Subscriber:Spouse Name:SARINA GARCIA Date of :1970 (Home) Address: [address] [place] [address] Payer ID:[id number] (NAIC) Type:HMO Address: [address] [place], [place] [address] [place] [address] Care Teams Pool Coordinator Relationship Specialty Start Date End Date Flor Romero NP [address] [facility] [address] [place] [address] PCP - General Nurse Practitioner 12/14/23 Additional Source Comments The information contained in this document represents components of the legal health record. It is not the complete legal health record.[facility]
== END 2025-11-09 09:04 ==
LOC: HO.LAB 09:03
PROVIDERS: PCP Nurse Practitioner Family; Visit Provider Physician Assistant
DX: Z01.818 Encounter for other preprocedural examination (principal); Z13.1 Encounter for screening for diabetes mellitus
CPT/HCPCS: 36415; 80048; 83036; 85027

== ENCOUNTER 2025-11-13 05:53 | Day surgery (SDC) | payer BC, SELFPAY ==
--- OUTSIDE RECORDS SUMMARY | 2023-12-14 10:13 | XMS_ITS | Encounter Summary ---
Author Organization [facility] Address [address] [place] [address] Phone Care Team Providers Care Ticket Counter Name Role Phone Flor Romero AIRCRAFT LINE ASSEMBLER Primary Care Provider Encounter Details Date Type Department Care Team (Late st Contact Info) Description 12/14/2023 9:13 AM EST Hospital Encounter [facility] [address] [place] [phone] Mercedes Bronw, AIRCRAFT LINE ASSEMBLER [address] [place] [address] [email or web address] Social History Tobacco Use Types Packs/Day Years [...] IMPRESSION: No acute findings. us Mercedes Brown AIRCRAFT LINE ASSEMBLER IMG XR CHEST Final Resul t documented in this encounter Visit Diagnoses Not on filedocumented in this encounter Care Teams Ticket Counter Relationship Specialty Start Date End Date Flor Romero NP [address] [facility] [address] [place] [id number] PCP - General Nurse Practitioner 12/14/23 documented as of this encounter Additional Source Comments The information contained in this document represents components of the legal health record. It is not the complete legal health record.[facility]
--- OUTSIDE RECORDS SUMMARY | 2025-09-20 17:08 | XMS_ITS | Clinical Summary ---
Author Organization [facility] Address [address] [place] [address] Phone Care Team Providers Care Trolley Wire Installer Name Role Phone Flor Romero COMMUNICATIONS CONSULTANT Primary Care Provider Allergies No known active [...] (#1) 2025 , 09/02/2020, 09/21/2019 COVID-19 VACCINE (4 - 2024-2 6 season) 2025 10/28/2021, 03/06/2021, 02/11/2021 RSV VACCINE (1 - 1-dose 75+ series) 2046 SMOKING STATUS SCREENING (On ce After 26 [...] topic Medical Devices Not on file Insurance [facility] Member Subscriber Plan / Payer (Ef fective 2012-Present) Name:Ruth Garcia Relation to Subscriber:Spouse Name:SARINA GARCIA Date of :1970 (Home) Address: [address] [place] [address] Payer ID:[id number] (NAIC) Type:HMO Address: [address] [place], [place] [address] Member Subscriber Plan / Payer (Ef fective 2012-Present) Name:Ruth Garcia Relation to Subscriber:Spouse Name:SARINA GARCIA Date of :1970 (Home) Address: [address] [place] [address] Payer ID:[id number] (NAIC) Type:HMO Address: [address] [place], [place] [address] Member Subscriber Plan / Payer (Ef fective 2012-Present) Name:Ruth Garcia Relation to Subscriber:Spouse Name:SARINA GARCIA Date of :1970 (Home) Address: [address] [place] [address] Payer ID:[id number] (NAIC) Type:HMO Address: [address] [place], [place] [address] [place] [address] Care Teams Trolley Wire Installer Relationship Specialty Start Date End Date Flor Romero NP [address] [facility] [address] [place] [address] PCP - General Nurse Practitioner 12/14/23 Additional Source Comments The information contained in this document represents components of the legal health record. It is not the complete legal health record.[facility]
[2025-10-13 12:54] VITALS: BP 146/74; PULSE 76; RESP 16; O2SAT 96; BMI 32.5
--- NOTE | 2025-10-13 13:11 | HO.ANESPROP2 ---
Documented by User: Natalie Nuno NP 10/13/25 13:28 HPI - Anesthesia Eval Consult details Narrative: 55 yr old female for left Knee Replacement Total scheduled for 11/13/25, seen in [facility] 10/13/25 No CP or SOB with very minimal activity due to knee pain. No recent illness s/p knee arthroscopy 05/2025 with GA, LMA 3; *she had no N/V with this procedure PONV: has not needed scopolamine patch, only recalls anti-nausea med via IV +STOP BANG, sleep study order is in. ETOH use significantly reduced since Jul 2025 [facility] Active Problems Active Problems: All Active Problems (Updated 10/13/25 @ 13:04 by Cindi Werner, SAVANNAH) Hypersomnia (Acute) PONV (postoperative nausea and vomiting) (Acute) History of colonoscopy (Acute ~09/19/25) Arthritis of left knee (Acute) History of Papanicolaou smear of cervix (Acute ~2021) History of mammogram (Acute ~2024) Immunization counseling (Acute) Snoring (Acute) Tear of medial meniscus of left knee (Acute) Left knee pain (Acute) Pain and swelling of left knee (Acute) Elevated LFTs (Acute) Macrocytosis without anemia (Acute) Vitamin D deficiency (Acute) Perimenopause (Acute) Obesity, Class I, BMI 30-34.9 (Acute) H/O midurethral sling procedure (Acute) Overactive bladder due to prolapse of female genital organ (Acute) Alcohol use disorder (Acute) Encounter for general adult medical examination without abnormal findings (Acute ~08/11/25) Skin cancer screening (Acute) Laboratory exam ordered as part of routine general medical examination (Acute) Screening for colon cancer (Acute) Past Medical History Medical History Osteoarthritis PONV (postoperative nausea and vomiting) Overactive bladder Family History Family History Father Diabetes Mother Breast cancer Cervical cancer Family history of problems with anesthesia: No Surgical History Surgical History H/O wisdom tooth extraction History of bladder surgery Hx of bilateral breast reduction surgery H/O arthroscopic knee surgery (06/05/25) History of Problems with Anesthesia: No Social History Social History Household Members: Family Housing: House Are you a primary childcare attendant to a significant other at home: No Do you presently have visiting nurse or other home services: No Alcohol intake: current Alcohol intake frequency: 0-2 drinks per day Alcohol type: beer and wine Patient Tobacco Use Status: Never used Tobacco e-Cigarette/Vaping Use: Never Used Second Hand Smoke Exposure: No Use of substances other than those prescribed or required for medical reasons: No Have you been hit, kicked, punched, or otherwise hurt by someone within the past year? 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 Cognitive needs: No Hearing needs: No Vision needs: Yes (wear glasses) Meds Allergies Allergy/AdvReac Type Severity Reaction Status Date / Time No Known Allergies Allergy Verified 11/13/25 06:32 Home Medications ?Medication ?Instructions ?Recorded ?Confirmed ?Last Taken ?Type diclofenac sodium 50 mg 50 mg PO BID PRN Pain 10/13/25 11/09/25 Unknown History tablet,delayed release mirabegron 25 mg tablet,extended 25 mg PO DAILY 10/13/25 11/09/25 Unknown History release 24 hr (Myrbetriq) Exam Height,Weight and Vital Signs: Height 5 ft 8 in Weight 97.069 kg Last Vital Signs Pulse 76 10/13/25 12:54 Resp 16 10/13/25 12:54 BP 146/74 H 10/13/25 12:54 Pulse Ox 96 10/13/25 12:54 O2 Del Method Room Air 10/13/25 12:54 Pertinent Lab Results Pertinent Lab Results: Laboratory Tests 10/09/25 07:43 WBC 5.7 RBC 4.44 Hgb 15.5 Hct 45.3 Plt Count 320 Sodium 139 Potassium 4.0 Chloride 105 Carbon Dioxide 23 BUN 11 Creatinine 0.97 Narrative Narrative: EKG 10/06/25 NSR, rate [address]-T wave changes Airway Mallampati Class: III TM Dist: >3cm Neck ROM: Full Loose/Missing/Broken Teeth: No Heart: RRR Lungs: CTAB Assessment and Plan Final Anesthetic Review Family History of Problems with Anesthesia: No History of Problems with Anesthesia: No Documented by User: Jocelyn Desai MD 11/13/25 08:41 PMFSH Past Medical History Medical History Osteoarthritis PONV (postoperative nausea and vomiting) Overactive bladder Family History Family History Father Diabetes Mother Breast cancer Cervical cancer Surgical History Surgical History H/O wisdom tooth extraction History of bladder surgery Hx of bilateral breast reduction surgery H/O arthroscopic knee surgery (06/05/25) Social History Social History Household Members: Family Housing: House Are you a primary childcare attendant to a significant other at home: No Do you presently have visiting nurse or other home services: No Alcohol intake: current Alcohol intake frequency: 0-2 drinks per day Alcohol type: beer and wine Patient Tobacco Use Status: Never used Tobacco e-Cigarette/Vaping Use: Never Used Second Hand Smoke Exposure: No Use of substances other than those prescribed or required for medical reasons: No Have you been hit, kicked, punched, or otherwise hurt by someone within the past year? 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 Cognitive needs: No Hearing needs: No Vision needs: Yes (wear glasses) Meds Allergies Allergy/AdvReac Type Severity Reaction Status Date / Time No Known Allergies Allergy Verified 11/13/25 06:32 Home Medications ?Medication ?Instructions ?Recorded ?Confirmed ?Last Taken ?Type diclofenac sodium 50 mg 50 mg PO BID PRN Pain 10/13/25 11/09/25 Unknown History tablet,delayed release mirabegron 25 mg tablet,extended 25 mg PO DAILY 10/13/25 11/09/25 Unknown History release 24 hr (Myrbetriq) Assessment and Plan Assessment Anesthesia Assessment: Anesthesia Plan Discussed and Chart Reviewed Final Anesthetic Review NPO: Yes ASA Class: II (NADIRA) Final Preanesthetic Review: No Changes in Pt Med Stat, Meds/Allgs Chart Reviewed, Consent Obtained/Reviewed and Anes Risks/Benef Reviewed Patient Risk: Low Procedure Risk: Intermediate Anesthetic Plan Anesthetic Plan: MAC:, Neuraxial Block:, Regional Block and Agree w/ Assess. and Plan Disposition: Standard PACU
[2025-10-13 14:57] LABS: MRSA Nasal PCR NEGATIVE (Negative); SA Nasal PCR POSITIVE (Negative)
[2025-11-13] VITALS (14 sets, daily range): BP systolic 95–121; BP diastolic 34–76; PULSE 49–77; RESP 11–19; TEMP 36.3–37.2; O2SAT 91–97; BMI 32.5; BMI 32.0
[2025-11-13] MEDS: Lactated Ringers 1,000 ML 100 ML IVCONT ×2 (06:26→13:52)
--- NOTE | 2025-11-13 10:51 | P.BOP_ITS ---
Brief Operative Note Date of Service: 11/13/25 Pre-op diagnosis: Left knee degenerative joint disease Post-op diagnosis: same Procedure: Left total knee arthroplasty Implants: [place] [employer]lon cemented posterior stabilized total knee arthroplasty with a femoral component size 4 left, tibial component size 3, polyethylene liner size 3 with 9 mm of thickness, Tritanium patellar component size 35 asymmetric with 10 mm of thickness Surgeon: Mario Covington MD Anesthesia: regional and spinal Was an Electron Beam Operator used for this Procedure?: No Electron Beam Operator: Marcella Ribeiro Estimated blood loss (mL): 200 Pathology: other (Bony fragments from the left femur, tibia and patella) Condition: stable Disposition: PACU
--- NOTE | 2025-11-13 10:53 | P.OP_ITS ---
Operative Note Operative Note Date of Service: 11/13/25 Narrative: After the patient was identified as Ruth Kaufman and their left knee was initialed by myself the patient was brought to the holding area where a left leg nerve block was performed by the anesthesiologist in routine fashion. The patient was then brought to the operating room where conscious sedation and spinal anesthesia were performed by the anesthesiologist in routine fashion. The patient was given 2 g of IV Ancef preoperatively for infection prophylaxis. The patient's left lower extremity was prepped and draped in sterile fashion. A formal time-out was completed. The patient's left knee was placed onto a small bump to produce 30? of knee flexion during exposure. A #10 scalpel blade was used to make a midline incision extending 1 handbreadth proximal and distal to the patella. A second #10 scalpel blade was used to dissect the subcutaneous tissues down to the extensor mechanism. The subcutaneous flaps were maintained as thick as possible. A medial parapatellar arthrotomy was then performed using a #10 scalpel blade. The arthrotomy was begun just medial to the patellar tendon. The arthrotomy was continued 1 cm medial to the patella and then 5 mm into the medial aspect of the quadriceps tendon. The infrapatellar fat pad was partially excised to help with exposure. The soft tissue retinaculum was raised one-half of the way around the medial aspect of the proximal tibia. The patella was everted and the knee was flexed to 90?. There was no injury to the patellar tendon or its insertion onto the tibial tubercle. A drill bit was introduced into the distal aspect of the femur with a starting point 1 cm anterior to the origin of the posterior cruciate ligament. The intramedullary alignment chasity was put into place. The distal alignment guide was set for a 5 degree valgus cut. The distal cutting block was put into place and we held it with 4 pins. The intramedullary alignment chasity was removed. Soft tissues were retracted in the distal femoral cut was made using a sagittal saw. The distal aspect of the femur measured to be a size 4 left component. Two drill holes were placed into the distal aspect of the femur marking 3? of external rotation. The distal cutting block was impacted into place and we held it with 2 pins. Soft tissues were retracted and the 4 distal femoral cuts were made using a sagittal saw. Final notching and drilling of the distal aspect of the femur were performed in routine fashion. The trial femoral component was impacted into place. The knee was taken through a full range of motion. The patella tracked well. The patella was everted and the knee was flexed to 90?. The trial component was removed and our attention was directed to the proximal tibia. The medial and lateral menisci were removed using a #10 scalpel blade. A small rim of the medial meniscus was left intact to help prevent injury to the medial collateral ligament. A drill bit was then introduced into the proximal tibia with a starting point midway from medial to lateral and one-third of the way posteriorly. The intramedullary alignment chasity was put into place. The proximal tibial cutting guide was placed over the alignment chasity in line with the 2nd toe. The guide was held in place using 3 pins. The intramedullary alignment chasity was removed. Soft tissues were retracted and the proximal tibial cut was made using a sagittal saw. The proximal tibia measured to be a size 3 component. The tibial tray was put into place with a 9 mm liner. The femoral component was impacted into place. The knee was taken through a full range of motion. There was full flexion and full extension. There was no instability with varus or valgus stress testing with the knee in flexion or extension. The patella tracked well with no medially directed force. The rotation of the tibial tray was marked using electrocautery with the knee in extension. The patella was everted and the knee was flexed to 90?. All trial components were removed. The tibial tray was placed onto the proximal tibia in line with the electrocautery piedad. The tray was held in place using 3 pins. Final broaching of the proximal tibia was performed in routine fashion. The trial liner and trial femoral component were put into place. The knee was brought into extension and our attention was directed to the patella. The patella measured 25 mm in thickness. The patellar resection guide was set for a 10 mm resection. Soft tissues were retracted and the patella cut was made using a sagittal saw. The remaining patella measured 15 mm in thickness. Inspection of the undersurface of the munguia lla showed a centralized defect measuring approximately 4 mm x 3 mm x 1 mm in depth. Because of the presence of the defect the decision was made to use a metal-backed patellar component to help prevent patellar component loosening or flex in the future. The undersurface of the patella was measured to be a size 35 asymmetric component. Three drill holes were placed into the undersurface of the patella in routine fashion. The trial component was put into place. The knee was taken through a full range of motion. The patella tracked well. The patella was everted and the knee was flexed to 90?. All trial components were removed. The knee was once again brought into extension and placed onto a small bump. The knee joint was irrigated with copious amounts of normal saline solution via pulse lavage while the cement was mixed. The patella was everted and the knee was flexed to 90?. A small amount of cement was placed along the posterior aspects of the tibial and femoral components. Cement was then pressurized into the proximal tibia. The tibial component was impacted into place. Any excess cement was removed. The polyethylene liner was then impacted into place. Cement was then pressurized into the distal aspect of the femur. A small amount of cement was placed into the intramedullary canal to help reduce bleeding. The femoral component was impacted into place. Any excess cement was removed. The knee was then brought into extension. Cement was pressurized into the undersurface of the patella. The patellar component was put into place and was held with a patella clamp. Any excess cement was removed. Once the cement had hardened the patellar clamp was removed. The knee was taken through a full range of motion. There was full flexion and extension. There was no instability with varus or valgus stress testing with the knee in flexion or extension. The patella tracked well with no medially directed force. The knee joint was irrigated with copious amounts of normal saline solution via pulse lavage. Any significant bleeding vessels were coagulated. The patient's left knee was placed onto a small bump. The arthrotomy was closed with #2 Ethibond [id number] interrupted suture as well as #1 Vicryl [id number] interrupted suture. The wound was once again irrigated. The subcutaneous tissues were closed with 0 Vicryl and 2-0 Vicryl interrupted sutures. The skin was closed with skin latoya. Dry sterile dressing and Kishan bandages were placed over the patient's left knee. The patient was awake and alert. The patient was transferred to the recovery room in stable condition. Justification for PA Data Processing Supervisor: The complexity of this total knee arthroplasty, involving significant bony deformity and soft tissue releases, necessitates the assistance of a qualified hand frame surgical elastic knitter for optimal surgical exposure, hemostasis and efficient execution of the procedure.
--- NOTE | 2025-11-13 13:39 | PHA.MEDREC ---
Pharmacy Consult ? Medication Reconciliation Pharmacy has reviewed the medication reconciliation completed by nursing.
[2025-11-13] MEDS: oxyCODONE HCl Immed Release 5 MG TABLET PO ×2 (13:52→18:22)
[2025-11-13] MEDS: oxyCODONE HCl ER 10 MG TAB.ER.12H PO ×2 (13:54→21:09)
--- NOTE | 2025-11-13 14:31 | P.DS_ITS ---
DS: Providers Provider Date of discharge: 11/14/25 Primary care physician: MIKI Vee-BRENDAN Consults: 11/13/25 13:18 Consult to Case Management Routine Comment: Home with Services Consult to Hospitalist Routine Comment: Consulting Provider: [facility] [place] Hospitalists Reason For Exam: Routine medical management DS: Summary Hospital Course Hospital Course: The patient underwent a successful left total knee arthroplasty, they were transferred to PACU and then to the floor to recover. During their stay, their vitals were stable, afebrile at 97.4. Labs were unremarkable, H/H 12.3/35.0. POD0 they were started on Aspirin 325mg po bid for DVT ppx, they also received Physical Therapy services twice a day. Prior to discharge, their dressing was clean dry and intact and the plan was to be discharged home with VNA services. Time Attestation Discharge Coordination Time (in mins): 30 Quality: Safe Use of Opioids Does Pt have an Active Cancer Diagnosis on the Problem List?: No Quality: Stroke Does the patient have a stroke diagnosis?: No Physical Exam Vital Signs: Vital Signs: Last Vital Signs Temp 97.3 F 11/13/25 13:31 Pulse 66 11/13/25 13:31 Resp 16 11/13/25 13:31 BP 110/76 11/13/25 13:31 Pulse Ox 93 11/13/25 13:31 O2 Del Method Room Air 11/13/25 13:31 BMI result Body Mass Index 32.0 Const: General: cooperative, healthy appearing and no acute distress Resp: Effort & Inspection: normal respiratory effort and able to speak in complete sentences Extrem: Other: left knee dressing is c/d/i. Able to dorsi/plantar flex. Calf is supple and nontender. Sensation intact. Pedal pulse intact. Psych: Appearance: grossly normal Mental Status: mental status grossly normal Attitude: cooperative DS: Data Data Completed and Pending Pending studies at discharge: Pending at discharge 11/13/25 08:36 Surgical [PTH] Routine Discharge Plan Discharge Patient Disposition: Home, Self-Care Referrals: Marcella Ribeiro PA-C [Physician [employer] Manager, Orthopedics] - 11/30/25 2:30 pm Discharge Medications: New methocarbamol 500 mg Tablet 500 mg PO TID 7 Days Qty: 21 0RF acetaminophen 325 mg Tablet 650 mg PO Q6H PRN (Reason: Pain, Mild 1-3,Fever,Headache) 30 Days Qty: 240 0RF aspirin 325 mg Tablet 325 mg PO BID 42 Days Qty: 84 0RF celecoxib 200 mg Capsule 200 mg PO BID 30 Days Qty: 60 0RF docusate sodium 100 mg Capsule 100 mg PO BID 30 Days Qty: 60 0RF gabapentin 100 mg Capsule 100 mg PO BEDTIME 7 Days Qty: 7 0RF oxycodone 5 mg Tablet 5 mg PO Q4H PRN (Reason: Pain, Moderate(Pain Scale 4-6)) 7 Days Qty: 42 0RF Rx Instructions: Partial Fill upon patient request. Continued (DME) walker Misc See Rx Instructions .MEDSUPPLY Qty: 1 0RF Rx Instructions: Folding front wheeled walker mirabegron [Myrbetriq] 25 mg tablet extended release 24 hr 25 mg PO DAILY cholecalciferol (vitamin D3) 50 mcg (2,000 unit) capsule 50 mcg PO DAILY Qty: 90 2RF folic acid 1 mg tablet 1 mg PO DAILY Qty: 90 2RF thiamine HCl (vitamin B1) 100 mg tablet 100 mg PO DAILY Qty: 90 2RF Discontinued diclofenac sodium 50 mg tablet,delayed release (DR/EC) 50 mg PO BID PRN (Reason: Pain) Patient Comments: patient states has not taken in months. Discharge Orders: Discharge Order (Routine); Ordered 11/14/25 Ordered By: Marcella Ribeiro Diet: Advance to usual diet Activity on Discharge: Use cane or walker Activity Restrictions/Additional Instructions: Physical Therapy for ROM 0-120, quad strength, gait training. Use walker for ambulation Limit stair climbing No shower or tub bath No driving for 6 weeks Continue anticoagulant Keep Aquacel dressing clean, dry and intact. Follow up with orthopedics in 2 weeks -Bandage/Incision Site Care: -Ice 20mins at a time -Make sure you use a towel or cloth on your skin as a barrier -DO NOT remove the bandage -Keep Bandage clean, dry and intact -Do not get the bandage wet: -No tub bath, pools or hot tubs -If there are any concerns regarding the bandage please call orthopedics: [phone] -Knee Precautions: -Refrain from putting pillows under the knee -Keep leg straight while resting the knee -Avoid low chairs and deep couches -Use supportive shoes with nonslip soles -Physical Therapy: -Patient is WBAT with the use of a walker -Range of Motion: 0-120 degrees. -Strengthening: Quadriceps and hip muscles -Walking: Gait training and gradually increasing distance with walker -Ankle pumps and incentive spirometry to limit the risk of blood clot -Diet: -Resume regular diet as tolerated. -Drink plenty of fluids and eat a high-fiber foods to avoid constipation -This is a common side effect of pain medication) -Take stool softeners as prescribed -Blood Clot Prevention: -Take the prescribed blood thinner as directed for 6 weeks -Perform ankle pumps and walk frequently with the walker and assistance if needed -Report calf pain, swelling, or shortness of breath immediately Print Language: Fijian
--- NOTE | 2025-11-13 14:32 | P.F2F_ITS ---
Service Date Service Date: 11/13/25 Encounter Date of encounter: 11/14/25 Reasons for Services Signs and symptoms assessed: s/p LTKA Pt. is considered homebound due to recent surgery. Unable to drive, poor balance, poor gait mechanics. Reason for physical therapy: home safety and mobility, therapeutic exercises, restore joint function, gait/transfer training and ADL training Homebound: Leaving the home is medically contraindicated at this time without the asist of a device and/or another person due th the listed conditions above and below. Reason homebound: unsteady gait / fall risk, leg weakness, pain with ambulation, pain with transfers, poor balance / fall risk and unable to drive Certification: Based on the above findings, I certify that this patient is confined to the home and needs intermittent snf care, physical therapy and/or speech th erapy, or continues to need occupational therapy. The patient is under my care, and I have initiated the establishment of the plan of care. The patient will be followed by a physician who will periodically review the plan of care. Time Spent With Patient Time: Total time managing care of this patient today ____ minutes.
--- NOTE | 2025-11-13 14:45 | HO.PM.IMCN ---
History of Present Illness Data of Consult Service Date: 11/13/25 Primary Care Provider: MIKI Vee- HPI Reason for consult: F/U s/p left total knee arthroplasty The patient is a 55 year old female who presents with progressively worsening left knee pain. She describes the pain as sharp and severe. She previously underwent left knee arthroscopic surgery with minimal relief. Her symptoms have progressed to the point of interfering with activities of daily living and sleep. She has received multiple injections, with the most recent providing no relief. She has also tried Tylenol, diclofenac, and physical therapy exercises with minimal benefit. She reports difficulty walking even short distances due to pain. She is now s/p left total knee arthroplasty performed for left knee degenerative joint disease. The procedure was completed without reported intraoperative complications. Her postoperative course and current clinical status require orthopedic follow up and continued management. Review of Systems Review of Systems: Denies any recent fever chills or decrease in appetite Respiratory denies SOB, wheezing, cough Cardiovascular denies chest pain, chest tightness, SOB Gastrointestinal denies any abdominal pain nausea vomiting or diarrhea Genitourinary denies any dysuria frequency or hematuria Musculoskeletal see HPI Neuropsych ?reports weakness with exertion s/p anesthesia for surgical procedure all other systems reviewed are negative PMFSH Medical History (Updated 11/13/25 @ 15:39 by Zandra Grayson NP) Overactive bladder Osteoarthritis PONV (postoperative nausea and vomiting) Overactive bladder Family History Father Diabetes Mother Breast cancer Cervical cancer Surgical History H/O wisdom tooth extraction History of bladder surgery Hx of bilateral breast reduction surgery H/O arthroscopic knee surgery (06/05/25) Social History Household Members: Family Both parents involved: No Caregiver staying overnight: No Housing: House Are you a primary child care nurse to a significant other at home: No Do you presently have visiting nurse or other home services: No 75 years or older and lives alone: No Alcohol intake: current Alcohol intake frequency: 0-2 drinks per day Alcohol type: beer and wine Patient Tobacco Use Status: Never used Tobacco e-Cigarette/Vaping Use: Never Used Second Hand Smoke Exposure: No service: No Current occupational status: 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 Cognitive needs: No Hearing needs: No Vision needs: Yes (wear glasses) Meds Allergies Allergy/AdvReac Type Severity Reaction Status Date / Time No Known Allergies Allergy Verified 11/13/25 06:32 Active Medications: Current Medications Acetaminophen (Acetaminophen 325 Mg Tablet) 650 mg PO Q6H PRN PRN Reason: Pain, Mild 1-3,fever,headache Aspirin (Aspirin 325 Mg Tablet) 325 mg PO BID [facility] Calcium Carbonate (Calcium Carbonate 750 Mg Tab.Chew) 750 mg PO Q4H PRN PRN Reason: Heartburn Celecoxib (Celecoxib 200 Mg Capsule) 200 mg PO BID [facility] Docusate Sodium (Docusate Sodium 100 Mg Capsule) 100 mg PO BID [facility] Folic Acid (Folic Acid 1 Mg Tablet) 1 mg PO DAILY [facility] Gabapentin (Gabapentin 100 Mg Capsule) 100 mg PO BEDTIME [facility] Hydromorphone HCl (Hydromorphone Hcl 1 Mg/Ml Syringe) 0.25 mg IVPUSH Q4H PRN; Protocol PRN Reason: Pain, Severe (Pain Scale 7-10) Cefazolin Sodium/Dextrose (Ancef) 2 gm in 50 mls @ 100 mls/hr IV Q8H [facility] Last Admin: 11/13/25 14:17 Dose: 100 mls/hr Lactated Ringer's (Lr) 1,000 mls @ 100 mls/hr IVCONT .Q10H [facility] Last Admin: 11/13/25 13:52 Dose: 100 mls/hr Magnesium Hydroxide (Milk Of Magnesia 30 Ml Oral.Susp) 30 ml PO DAILY PRN PRN Reason: Constipation Melatonin (Melatonin 3 Mg Tablet) 6 mg PO BEDTIME PRN PRN Reason: Insomnia Methocarbamol (Methocarbamol 500 Mg Tablet) 500 mg PO TID [facility] Last Admin: 11/13/25 13:52 Dose: 500 mg Mirabegron (Mirabegron 25 Mg Tab.Er.24h) 25 mg PO DAILY [facility] Ondansetron HCl (Ondansetron Hcl 4 Mg/2 Ml Vial) 4 mg IVPUSH Q8H PRN PRN Reason: Nausea and Vomiting Oxycodone HCl (Oxycodone Hcl Immed Release 5 Mg Tablet) 5 mg PO Q4H PRN PRN Reason: Pain, Moderate(Pain Scale 4-6) Last Admin: 11/13/25 13:52 Dose: 5 mg Oxycodone HCl (Oxycodone Hcl Er 10 Mg Tab.Er.12h) 10 mg PO BID [facility] Last Admin: 11/13/25 13:54 Dose: 10 mg Sodium Chloride (0.9 % Sodium Chloride Flush 3 Ml Syringe) 3 ml IVFLUSH QSHIFT [facility] Thiamine HCl (Thiamine Hcl 100 Mg Tablet) 100 mg PO DAILY [facility] Vitamin D (Cholecalciferol (Vitamin D3) 25 Mcg Tablet) 50 mcg PO DAILY [facility] Home Medications ?Medication ?Instructions ?Recorded ?Confirmed ?Last Taken ?Type diclofenac sodium 50 mg 50 mg PO BID PRN Pain 10/13/25 11/09/25 Unknown History tablet,delayed release mirabegron 25 mg tablet,extended 25 mg PO DAILY 10/13/25 11/09/25 Unknown History release 24 hr (Myrbetriq) Physical Exam Vital Signs and Narrative: Vital Signs: Last Vital Signs Temp 97.3 F 11/13/25 13:31 Pulse 66 11/13/25 13:31 Resp 16 11/13/25 13:31 BP 110/76 11/13/25 13:31 Pulse Ox 93 11/13/25 13:31 O2 Del Method Room Air 11/13/25 13:31 BMI result Body Mass Index 32.0 Constitutional Cooperative, healthy-appearing, no acute distress Respiratory Normal respiratory effort, no cough, no wheeze, rales, rhonchi Extremities Left leg dressing clean, dry, intact, able to dorsiflex and plantarflex, calf supple and nontender, Sensation intact Pedal pulse intact, surgical incision not visualized Psychiatric Appropriate mood and affect neuro patient is alert, oriented to person place and time, no focal deficits Assessment and Plan (1) Overactive bladder: Status: Acute Plan Patient is s/p left total knee arthroplasty performed 11/13 for left knee degenerative joint disease. The procedure was completed without reported intraoperative complications. Her postoperative course and current clinical status require orthopedic follow up and continued management. Plan S/P left total knee arthroplasty Continue routine postoperative care per orthopedic protocol Monitor vitals Q4H Contine Cefazolin Pain control with Diclofenac and Tylenol Early ambulation and physical therapy Follow up with orthopedic team for ongoing postoperative management Over Active Bladder Continue home Myrbetriq DVT PPx ASA BID Code Status Full Code Medical consultation completed. Will sign off
--- NOTE | 2025-11-13 15:12 | MHC.CM.PN ---
PT LIVES WITH AND GROWN CHILDREN PT IS INDEPEDENT HAS A RIDE HOME PT TO BE DCD WITH [facility]
[2025-11-13] MEDS: 0.9 % Sodium Chloride Flush 3 ML SYRINGE IVFLUSH ×2 (16:03→21:10)
[2025-11-14] VITALS: BP 109/59; PULSE 66; RESP 20; TEMP 36.5; O2SAT 94
[2025-11-14 04:00] VITALS: BP 112/53; PULSE 56; RESP 18; TEMP 36.3; O2SAT 92
[2025-11-14 05:47] LABS: MANUAL DIFF FLAG NO
[2025-11-14 05:48] LABS: Hematocrit 35.0 % (37.0-47.0); Hemoglobin 12.3 g/dl (12.0-16.0); Imm Gran Abs Auto 0.07 X10*3/uL (0.00-0.03); Imm Gran Pct Auto 0.6 % (0.0-0.4); Lymphocytes Absolute Auto 0.9 X10*3/uL (1.2-4.9); Mean Corpuscular HGB Conc 35.1 g/dl (31.0-35.0); Mean Corpuscular Hemoglobin 35.0 pg (27.0-33.0); Mean Corpuscular Volume 99.7 fL (80.0-98.0); NRBC Abs Auto 0.000 X10*3/uL (0.0-0.012); NRBC Pct Auto 0.0 /100WBC (0.0-0.2); Platelet Count 246 X10*3/uL (160-400); Red Blood Count 3.51 X10*6/uL (4.20-5.50); White Blood Count 11.0 X10*3/uL (4.8-10.8)
[2025-11-14 06:02] LABS: Anion Gap 11 (12-20); Blood Urea Nitrogen 12 mg/dL (9-16); Calcium 8.9 mg/dL (8.4-10.2); Carbon Dioxide 27 mmol/L (22-29); Chloride 106 mmol/L (96-108); Creatinine Clr Calc Pharmacy 72.6; Estimated Glomerular Filt Rate 53; Potassium 4.3 mmol/L (3.3-5.1); Sodium 140 mmol/L (135-145)
[2025-11-14 07:16] VITALS: BP 101/57; PULSE 63; RESP 18; TEMP 36.3; O2SAT 97
[2025-11-14 08:20] VITALS: BP 107/55; PULSE 56
--- NOTE | 2025-11-14 08:22 | HO.POSTANES ---
Post Anesthesia Evaluation Post Anesthesia Evaluation Date of Service: 11/14/25 Vital Signs: Vital Signs Temp Pulse Resp BP Pulse Ox O2 Del Method 11/14/25 07:16 97.4 F 63 18 101/57 L 97 Room Air 11/14/25 04:00 97.3 F 56 18 112/53 L 92 Room Air 11/14/25 00:00 97.7 F 66 20 109/59 L 94 Room Air Anesthesia: Spinal Mental Status: Awake Pain Control: Satisfactory Nausea/Vomiting: None Hydration: Adequate Anesthesia-Related Issues: No Anes. Related Issues
[2025-11-14] MEDS: 0.9 % Sodium Chloride Flush 3 ML SYRINGE IVFLUSH (08:27)
[2025-11-14] MEDS: oxyCODONE HCl ER 10 MG TAB.ER.12H PO (09:06)
[2025-11-14] MEDS: oxyCODONE HCl Immed Release 5 MG TABLET PO (09:06)
[2025-11-14 10:00] VITALS: BP 113/55; PULSE 61; RESP 18; TEMP 36.3; O2SAT 98
--- NOTE | 2025-11-14 10:21 | W.MHC.F2F ---
Service Date Service Date: 11/14/25 Encounter Date of encounter: 11/14/25 Reasons for Services Signs and symptoms assessed: s/p LTKA Pt. is considered homebound due to recent surgery. Unable to drive, poor balance, poor gait mechanics. Reason for physical therapy: home safety and mobility, therapeutic exercises, restore joint function, gait/transfer training and ADL training Homebound: Leaving the home is medically contraindicated at this time without the asist of a device and/or another person due th the listed conditions above and below. Reason homebound: unsteady gait / fall risk, leg weakness, pain with ambulation, poor balance / fall risk and unable to drive Certification: Based on the above findings, I certify that this patient is confined to the home and needs intermittent halfway care, physical therapy and/or speech therapy, or continues to need occupational therapy. The patient is under my care, and I have initiated the establishment of the plan of care. The patient will be followed by a physician who will periodically review the plan of care. Time Spent With Patient Time: Total time managing care of this patient today ____ minutes.
--- NOTE | 2025-11-14 10:31 | MHC.CM.PN ---
S/P L TKA Patient discharged to home with [facility]. She will transition to outpatient services with [facility] [place]. Patient has arranged for transportation home.
== END 2025-11-14 10:20 | disposition home health service (06) ==
LOC: HO.SSS 05:53 → HO.S3 13:11
PROVIDERS: Physician Assistant; PCP Nurse Practitioner Family; Visit Provider Orthopaedic Surgery
PROC: (CPT 27447; principal; 2025-11-13 07:30)
DX: M17.12 Unilateral primary osteoarthritis, left knee (principal); M25.562 Pain in left knee; R26.2 Difficulty in walking, not elsewhere classified; N32.81 Overactive bladder; Z98.890 Other specified postprocedural states; Z79.899 Other long term (current) drug therapy
CPT/HCPCS: 27447; 36415; 80048; 85025; 86850; 86900; 86901; 87640; 87641; 88305; 88311; 97162; 97530; A6260; C1776; J0131; J0665; J0690; J1100; J1171; J2003; J2151; J2250; J2371; J2405; J2704; J3374; J7120

== ENCOUNTER → 2025-11-13 05:53 | Outpatient (BNV) | payer BC, SELFPAY | PROVIDERS: PCP Nurse Practitioner Family; Visit Provider Orthopaedic Surgery | DX: M17.12 Unilateral primary osteoarthritis, left knee (principal) | CPT/HCPCS: 27447; G0180 ==

== ENCOUNTER → 2025-11-13 05:53 | Outpatient (BNV) | payer BC, SELFPAY | PROVIDERS: PCP Nurse Practitioner Family; Visit Provider Nurse Practitioner Acute Care | DX: N32.81 Overactive bladder (principal) | CPT/HCPCS: 99252 ==